=== PATIENT | female | born 1965 | race Two or more races ===

== ENCOUNTER 2018-08-28 09:29 | Inpatient (IN) | payer BC ==
[2018-08-28 11:26] LABS: BASO % 0.4 % (0-2.0); EOS % 0.2 % (0-4.5); HEMATOCRIT 28.7 % (32.4-45.2); HEMOGLOBIN 10.2 GM/dL (10.7-15.3); LYMPH % 21.8 % (8-40); MCH 32.1 pg (25.7-33.7); MCHC 35.5 g/dl (32.0-36.0); MEAN CELL VOLUME 90.4 fl (80-96); MONO % 4.4 % (3.8-10.2); NEUT % 73.2 % (42.8-82.8); PLATELET COUNT 303 K/MM3 (134-434); RBC 3.17 M/mm3 (3.60-5.2); RDW 13.7 % (11.6-15.6); WHITE BLOOD COUNT 9.9 K/mm3 (4.0-10.0)
[2018-08-28 11:53] LABS: ALBUMIN 4.1 g/dl (3.4-5.0); ALK PHOS 67 U/L (45-117); ANION GAP 6 MMOL/L (8-16); BILIRUBIN,TOTAL 0.4 mg/dL (0.2-1); BLOOD UREA NITROGEN 24 mg/dL (7-18); CALCIUM 8.3 mg/dL (8.5-10.1); CHLORIDE 106 mmol/L (98-107); CO2 26 mmol/L (21-32); CREATININE 0.6 mg/dL (0.55-1.3); GLUCOSE,RANDOM 99 mg/dL (74-106); POTASSIUM 3.8 mmol/L (3.5-5.1); SGOT/AST 19 U/L (15-37); SGPT/ALT 32 U/L (13-61); SODIUM 139 mmol/L (136-145); TOT PROT 7.2 g/dl (6.4-8.2)
[2018-08-28 12:59] LABS: URINE APPEARANCE CLEAR; URINE BILIRUBIN NEGATIVE (<2.0 mg/dL); URINE COLOR STRAW; URINE GLUCOSE (UA) NEGATIVE (NEGATIVE); URINE KETONE NEGATIVE (NEGATIVE); URINE LEUK ESTERASE NEGATIVE (NEGATIVE); URINE NITRITE NEGATIVE (NEGATIVE); URINE PROTEIN NEGATIVE (NEGATIVE); URINE UROBILINOGEN NEGATIVE mg/dL (0.2-1.0)
--- NOTE | 2018-08-28 13:11 | PDOC ---
History of Present Illness - General Chief Complaint: Pain Stated Complaint: ABDOMINAL PAIN Time Seen by Provider: 08/28/18 10:49 History Source: Patient Exam Limitations: No Limitations - History of Present Illness Travel History: No Initial Comments: 08/28/18 13:00 52 y/o female presents to the ED for evaluation of dark stool x 3 weeks associated with blood tinged stool upon defecation today. Pt states has hx of hemorrhoids and feels this am with pushing had caused it to bleed. Pt states has appt w/ Mallory next month but does not want to wait. Pt denies fever, chills, weight change, or urinary complaints. Pt states has hx of colitis, ibs, ulcers, and diverticulitis without sx intervention. Pt take NSAIDS a few times a week for LINDQUIST. Timing/Duration: reports: changing over time Quality: reports: mild, cramping Abdominal Pain Onset Location: reports: RLQ, LLQ Pain Radiation: reports: no radiation Activities at Onset: reports: none Aggravating Factors: improves with: None Alleviating Factors: improves with: None Past History - Travel Traveled outside of the country in the last 30 days: No Close contact w/someone who was outside of country & ill: No - Past Medical History Allergies/Adverse Reactions: Allergies Allergy/AdvReac Type Severity Reaction Status Date / Time No Known Allergies Allergy Verified 08/28/18 09:37 Home Medications: Ambulatory Orders Losartan Potassium 50 mg PO DAILY 08/28/18 Anemia: No Asthma: No Cancer: No Cardiac Disorders: Yes (MVP (MILD)) CVA: No COPD: No CHF: No Dementia: No Diabetes: No GI Disorders: Yes (IBS,COLON POLYPS,ULCER) Disorders: Yes (HPV) HTN: Yes Hypercholesterolemia: No Liver Disease: Yes (NAFLD) Seizures: No Thyroid Disease: No - Surgical History Abdominal Surgery: Yes (hysterectomy) Appendectomy: No Cardiac Surgery: No Cholecystectomy: Yes Lung Surgery: No Neurologic Surgery: No Orthopedic Surgery: No - Immunization History Immunization Up to Date: Yes - Suicide/Smoking/Psychosocial Hx Smoking History: Never smoked Have you smoked in the past 12 months: No Information on smoking cessation initiated: No Hx Alcohol Use: No Drug/Substance Use Hx: No Substance Use Type: None Patient Lives Alone: No Lives with/in: spouse/SO Abd/GI Specific PMHX - Complaint Specific PMHX Colitis: Yes Diverticulitis: Yes Irritable Bowel Synd (IBS): Yes Review of Systems - Review of Systems Able to Perform ROS?: No Is the patient limited Amharic proficient: No Constitutional: No: Symptoms Reported HEENTM: No: Symptoms Reported Respiratory: No: Symptoms reported Cardiac (ROS): No: Symptoms Reported ABD/GI: Yes: Blood Streaked Bowels, Abdominal cramping. No: Nausea, Vomiting : No: Symptoms Reported Musculoskeletal: No: Symptoms Reported Integumentary: No: Symptoms Reported Neurological: No: Symptoms reported Endocrine: No: Symptoms Reported Hematologic/Lymphatic: No: Symptoms Reported *Physical Exam - Vital Signs Last Vital Signs Temp Pulse Resp BP Pulse Ox 98.2 F 108 H 18 146/81 98 08/28/18 09:35 08/28/18 11:30 08/28/18 11:30 08/28/18 11:30 08/28/18 11:30 - Physical Exam General Appearance: Yes: Nourished, Appropriately Dressed. No: Apparent Distress HEENT: negative: Pale Conjunctivae Neck: positive: Normal Thyroid, Supple Respiratory/Chest: positive: Lungs Clear, Normal Breath Sounds. negative: Respiratory Distress, Accessory Muscle Use Cardiovascular: positive: Regular Rhythm, Tachycardia. negative: Murmur Gastrointestinal/Abdominal: positive: Normal Bowel Sounds, Soft, Tenderness (llq /rlq). negative: Distended, Guarding, Rebound, Hernia, Mass Rectal Exam: positive: heme positive stool (black stool on withdrawn glove) Musculoskeletal: negative: CVA Tenderness Extremity: positive: Normal Capillary Refill. negative: Pedal Edema Integumentary: positive: Normal Color, Warm, Moist Neurologic: positive: Motor Strength 5/5 (ambulatory) Moderate Sedation - Procedure Monitoring Vital Signs: Procedure Monitoring Vital Signs Temperature 98.2 F 08/28/18 09:35 Pulse Rate 108 H 08/28/18 11:30 Respiratory Rate 18 08/28/18 11:30 Blood Pressure 146/81 08/28/18 11:30 O2 Sat by Pulse Oximetry (%) 98 08/28/18 11:30 Heart Score/ECG Review - ECG Intrepretation Rhythm: Regular Rhythm (rate 98, nsr) ED Treatment Course - LABORATORY CBC & Chemistry Diagram: 08/28/18 11:00 08/28/18 11:00 - ADDITIONAL ORDERS Additional order review: Laboratory Results 08/28/18 08/28/18 11:42 11:00 Sodium 139 Potassium 3.8 Chloride 106 Carbon Dioxide 26 Anion Gap 6 L BUN 24 H Creatinine 0.6 Creat Clearance w eGFR > 60 Random Glucose 99 Calcium 8.3 L Total Bilirubin 0.4 AST 19 ALT 32 Alkaline Phosphatase 67 Total Protein 7.2 Albumin 4.1 Stool Occult Blood Positive 08/28/18 11:00 RBC 3.17 L MCV 90.4 MCHC 35.5 RDW 13.7 MPV 7.0 L Neutrophils % 73.2 D Lymphocytes % 21.8 D Monocytes % 4.4 Eosinophils % 0.2 D Basophils % 0.4 - RADIOLOGY Radiology Studies Ordered: Category Date Time Status ABDOMEN & PELVIS CT WITH CONTR [CT] Stat CT Scan 08/28/18 12:29 Ordered Medical Decision Making - Medical Decision Making 08/28/18 12:18 CC: abd pain with dark stool x 3 weeks, blood tinged stool w/ defecation this am. Has appt betsy/ mallory next month. Hx ibs, ulcers, colitis Exam: tachy, lower abd tenderness, black stool on withdrawn glove Plan: labs, stool for occult blood, abd ct 08/28/18 13:22 Laboratory Tests 08/28/18 08/28/18 08/28/18 11:00 11:00 11:42 WBC 9.9 Hgb 10.2 L Hct 28.7 L D MPV 7.0 L Neutrophils % 73.2 D Sodium 139 Potassium 3.8 Chloride 106 Carbon Dioxide 26 Anion Gap 6 L BUN 24 H Creatinine 0.6 Random Glucose 99 Calcium 8.3 L Total Bilirubin 0.4 AST 19 ALT 32 Alkaline Phosphatase 67 Total Protein 7.2 Albumin 4.1 Ur Specific [place] Urine Nitrite Ur Leukocyte Esterase Stool Occult Blood Positive 08/28/18 12:45 WBC Hgb Hct MPV Neutrophils % Sodium Potassium Chloride Carbon Dioxide Anion Gap BUN Creatinine Random Glucose Calcium Total Bilirubin AST ALT Alkaline Phosphatase Total Protein Albumin Ur Specific [place] 1.009 L Urine Nitrite Negative Ur Leukocyte Esterase Negative Stool Occult Blood 08/28/18 13:22 Laboratory Tests 07/25/18 09:06 Hgb 13.3 08/28/18 14:[address] shows sea nonobstructing nephlolithiasis. Otherwise no acute pathology. Call placed to Dr. Tejada. 08/28/18 15:[address] Worley and states please patient a protonic drip, keep nothing by mouth and admit to be scoped tomorrow. 08/28/18 17:01 hr 96 *DC/Admit/Observation/Transfer Diagnosis at time of Disposition: Abdominal pain, Hemoglobin decreased, Guaiac positive stools - Discharge Dispostion Decision to Admit order: Yes - Referrals - Patient Instructions - Post Discharge Activity
[2018-08-28] MEDS ORDERED: PANTOPRAZOLE SODIUM 80 MG in SODIUM CHLORIDE 100 ML IVPB ONE (15:15)
[2018-08-28] MEDS ORDERED: PANTOPRAZOLE SODIUM 80 MG/200 ML BAG IVPB ONE (15:41)
[2018-08-28] MEDS ORDERED: PANTOPRAZOLE SODIUM 40 MG VIAL ONE (15:43)
[2018-08-28] MEDS: PANTOPRAZOLE SODIUM 80 MG in SODIUM CHLORIDE 100 ML IVPB SCH (16:16)
--- NOTE | 2018-08-28 18:06 | HP ---
CHIEF COMPLAINT: dark stools, epigastric burning and cramps for 3 days PCP: Dr. Nair HISTORY OF PRESENT ILLNESS: 52 yof with PMhx of HTN, haemorrhoids, IBS, comes with 3 days of dark stools associated with epigsatric burning and alexandra-umbilical cramps. Reports has IBS and alternates diarrhea with constipation. Has been having multiple watery stools for last 3 days. No fevers, chills, abdominal pain noted. Was recently treated for influenza A. No recent antibiotics. reports has been taking advil almost daily for migrainous headaches for last few years. last colonoscopy 4 years ago with polyps, but no prior EGD. 12 point ROS done, neg for chest pain, dizziness, palpitations, nausea, vomiting , decreased PO intake or new concerns. ER course was notable for: (1) CT A/P neg for acute process (2) GI consult Dr. Tejada called (3) Protonix drip Recent Travel: denies PAST MEDICAL HISTORY: HTN, haemorrhoids, IBS PAST SURGICAL HISTORY: Hysterectomy Social History: Smoking: Denies Alcohol: denies Drugs: Denies Works in [employer] Family History: Allergies No Known Allergies Allergy (Verified 08/28/18 09:37) HOME MEDICATIONS: Home Medications Medication Instructions Recorded Losartan Potassium 50 mg PO DAILY 08/28/18 REVIEW OF SYSTEMS CONSTITUTIONAL: Absent: fever, chills, diaphoresis, generalized weakness, malaise, loss of appetite, weight change HEENT: Absent: rhinorrhea, nasal congestion, throat pain, throat swelling, difficulty swallowing, mouth swelling, ear pain, eye pain, visual changes CARDIOVASCULAR: Absent: chest pain, syncope, palpitations, irregular heart rate, lightheadedness , peripheral edema RESPIRATORY: Absent: cough, shortness of breath, dyspnea with exertion, orthopnea, wheezing, stridor, hemoptysis GASTROINTESTINAL: Present: melena, epigastric burning, alexandra-umbilical burning Absent: abdominal pain, abdominal distension, nausea, vomiting, diarrhea, constipation, hematochezia GENITOURINARY: Absent: dysuria, frequency, urgency, hesitancy, hematuria, flank pain, genital pain MUSCULOSKELETAL: Absent: myalgia, arthralgia, joint swelling, back pain, neck pain SKIN: Absent: rash, itching, pallor HEMATOLOGIC/IMMUNOLOGIC: Absent: easy bleeding, easy bruising, lymphadenopathy, frequent infections ENDOCRINE: Absent: unexplained weight gain, unexplained weight loss, heat intolerance, cold intolerance NEUROLOGIC: Absent: headache, focal weakness or paresthesias, dizziness, unsteady gait, seizure, mental status changes, bladder or bowel incontinence PSYCHIATRIC: Absent: anxiety, depression, suicidal or homicidal ideation, hallucinations. PHYSICAL EXAMINATION Vital Signs - 24 hr 08/28/18 08/28/18 08/28/18 09:35 11:30 15:08 Temperature 98.2 F Pulse Rate 122 H Pulse Rate [ 108 H 111 H Right Radial] Respiratory 18 18 18 Rate Blood Pressure 133/83 Blood Pressure 146/81 147/84 [Right Arm] O2 Sat by Pulse 100 98 98 Oximetry (%) GENERAL: Awake, alert, and fully oriented, in no acute distress. HEAD: Normal with no signs of trauma. EYES: Pupils equal, round and reactive to light, extraocular movements intact, sclera anicteric, conjunctiva clear. No lid lag. EARS, NOSE, THROAT: Ears normal, nares patent, oropharynx clear without exudates. Moist mucous membranes. NECK: Normal range of motion, supple without lymphadenopathy, JVD, or masses. LUNGS: Breath sounds equal, clear to auscultation bilaterally. No wheezes, and no crackles. No accessory muscle use. HEART: Regular rate and rhythm, normal S1 and S2 ABDOMEN: Soft, nontender, not distended, normoactive bowel sounds, no guarding, no rebound, no masses. Reports sensitive alexandra-umbilical region but no tenderness MUSCULOSKELETAL: Normal range of motion at all joints. No bony deformities or tenderness. No CVA tenderness. UPPER EXTREMITIES: 2+ pulses, warm, well-perfused. No cyanosis. No clubbing. No peripheral edema. LOWER EXTREMITIES: 2+ pulses, warm, well-perfused. No calf tenderness. No peripheral edema. NEUROLOGICAL: Cranial nerves II-XII intact. Normal speech. Gait not observed PSYCHIATRIC: Cooperative. Good eye contact. Appropriate mood and affect. SKIN: Warm, dry, normal turgor, no rashes or lesions noted, normal capillary refill. Laboratory Results - last 24 hr 08/28/18 08/28/18 08/28/18 11:00 11:00 11:42 WBC 9.9 RBC 3.17 L Hgb 10.2 L Hct 28.7 L D MCV 90.4 MCH 32.1 MCHC 35.5 RDW 13.7 Plt Count 303 MPV 7.0 L Absolute Neuts (auto) 7.2 Neutrophils % 73.2 D Lymphocytes % 21.8 D Monocytes % 4.4 Eosinophils % 0.2 D Basophils % 0.4 Nucleated RBC % 0 Sodium 139 Potassium 3.8 Chloride 106 Carbon Dioxide 26 Anion Gap 6 L BUN 24 H Creatinine 0.6 Creat Clearance w eGFR > 60 Random Glucose 99 Calcium 8.3 L Total Bilirubin 0.4 AST 19 ALT 32 Alkaline Phosphatase 67 Total Protein 7.2 Albumin 4.1 Urine Color Urine Appearance Urine pH Ur Specific [place] Urine Protein Urine Glucose (UA) Urine Ketones Urine Blood Urine Nitrite Urine Bilirubin Urine Urobilinogen Ur Leukocyte Esterase Stool Occult Blood Positive 08/28/18 12:45 WBC RBC Hgb Hct MCV MCH MCHC RDW Plt Count MPV Absolute Neuts (auto) Neutrophils % Lymphocytes % Monocytes % Eosinophils % Basophils % Nucleated RBC % Sodium Potassium Chloride Carbon Dioxide Anion Gap BUN Creatinine Creat Clearance w eGFR Random Glucose Calcium Total Bilirubin AST ALT Alkaline Phosphatase Total Protein Albumin Urine Color Straw Urine Appearance Clear Urine pH 7.0 Ur Specific [place] 1.009 L Urine Protein Negative Urine Glucose (UA) Negative Urine Ketones Negative Urine Blood Negative Urine Nitrite Negative Urine Bilirubin Negative Urine Urobilinogen Negative Ur Leukocyte Esterase Negative Stool Occult Blood CT A/P results reviewed EKG: NSR 98, no acute ST-T changes ASSESSMENT/PLAN: 52 yof with PMHx of HTN, haemorrhoids, IBS admitted with melena, acute anemia. -Melena, r/o NSAIDs induced gastritis, vs PUD, vs AVM, vs lower GI bleed -Acute blood loss anemia -HTN -Haemorrhoids -IBS Plan: GI Dr. Tejada consulted from the ED. NPO, protonix drip, EGD in AM. patient counseled to avoid NSAIDs. Continue losartan as tolerated. Admit to med surg. Dispo planning in 24 hours if H/h stable, EGD non concerning with possible outpatient colonoscopy Plan discussed with patient in detail, all questions answered. total admit time spent 55 min. Visit type - Emergency Visit Emergency Visit: Yes Care time: The patient presented to the Emergency Department on the above date and was hospitalized for further evaluation of their emergent condition. - New Patient This patient is new to me today: Yes Date on this admission: 08/28/18 - Critical Care Critical Care patient: No
[2018-08-28] MEDS ORDERED: DEXTROSE 5%-NORMAL SALINE 1,000 ML IV SCH (18:15)
[2018-08-28] MEDS: ACETAMINOPHEN 325 MG TABLET (FP) PO PRN (21:14)
[2018-08-28] MEDS ORDERED: LOSARTAN POTASSIUM 50 MG TABLET (FP) PO ONE (21:18)
--- NOTE | 2018-08-28 21:56 | CON.GI ---
Consult Consult Specialty:: Gastroenterology Referred by:: Bonnie Slaughter NP Reason for Consultation:: Black stool - History of Present Illness Chief Complaint: black stool x 3 days History of Present Illness: 52F has been experiencing epigastric pain and GERD with increasingly frequency and intensity for the past few months. She does take NSAIDs for headache several times a week and takes daily baby aspirin. On 08/26 and 08/27 she had a black semisolid stool and again today. Her Hb is the office is 10 and was 13 just a few weeks ago. She reminds me that she had an ulcer diagnosed by Dr Alberto remotely but has never required transfusions. She had had several colonoscopies with me for polyps that include an adenoma removed in 2007. Her last colonoscopy was performed in 10/29 and revealed mild diverticulosis and led to the removal of a hyperplastic polyp. No recent weight loss. She denies hematemesis. - History Source History Provided By: Patient Limitations to Obtaining History: No Limitations - Past Medical History PODIATRIST ORTHOPEDIC: Yes: Migraine Cardio/Vascular: Yes: HTN, Other (MVP) Gastrointestinal: Yes: Diverticulosis, GI Bleed, Peptic Ulcer Disease, Other ( colon polyps removed including an adenoma in 2007) Hepatobiliary: Yes: Cholelithiasis (had lap choly), Choledocholithiasis (had ERCP & sphincterotomy), Other (NAFLD) Renal/: Yes: Renal Calculi Reproductive: Yes: Endometriosis (had TAHBSO), Fibroids Infectious Disease: Yes: Other (HPV) - Past Surgical History Past Surgical History: Yes: Cholecystectomy (lap choly), Colonoscopy, , Hysterectomy (TAHBSO for endometriosis), Upper Endoscopy Additional Surgical History: sebaceous cystectomies form the back. ERCP & sphincterotomy to remove CBD stones. eye surgeries. 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year[place] age 3 History of Recent Travel: No Home Medications - Allergies Allergies/Adverse Reactions: Allergies Allergy/AdvReac Type Severity Reaction Status Date / Time No Known Allergies Allergy Verified 08/28/18 09:37 - Home Medications Home Medications: Ambulatory Orders Losartan Potassium 50 mg PO DAILY 08/28/18 Family Disease History - Family Disease History Family Disease History: Other: Father (healthy), Mother (hyperparathyroidism, HTN,HPL) Review of Systems - Review of Systems Constitutional: reports: No Symptoms Eyes: reports: No Symptoms HENT: reports: No Symptoms Neck: reports: No Symptoms Cardiovascular: reports: No Symptoms Respiratory: reports: No Symptoms Gastrointestinal: reports: Abdominal Pain, Indigestion, Melena, Other (acid reflux) Genitourinary: reports: No Symptoms Musculoskeletal: reports: No Symptoms Neurological: reports: Headache Physical Exam-GI Vital Signs: Vital Signs Temperature 98.5 F 08/28/18 20:16 Pulse Rate 103 H 08/28/18 20:16 Respiratory Rate 18 08/28/18 20:16 Blood Pressure 156/88 08/28/18 20:16 O2 Sat by Pulse Oximetry (%) 98 08/28/18 20:16 CBC,CMP WBC 9.9 K/mm3 (4.0-10.0) 08/28/18 11:00 RBC 3.17 M/mm3 (3.60-5.2) L 08/28/18 11:00 Hgb 10.2 GM/dL (10.7-15.3) L 08/28/18 11:00 Hct 28.7 % (32.4-45.2) L D 08/28/18 11:00 MCV 90.4 fl (80-96) 08/28/18 11:00 MCH 32.1 pg (25.7-33.7) 08/28/18 11:00 MCHC 35.5 g/dl (32.0-36.0) 08/28/18 11:00 RDW 13.7 % (11.6-15.6) 08/28/18 11:00 Plt Count 303 K/MM3 (134-434) 08/28/18 11:00 MPV 7.0 fl (7.5-11.1) L 08/28/18 11:00 Absolute Neuts (auto) 7.2 K/mm3 (1.5-8.0) 08/28/18 11:00 Neutrophils % 73.2 % (42.8-82.8) D 08/28/18 11:00 Lymphocytes % 21.8 % (8-40) D 08/28/18 11:00 Monocytes % 4.4 % (3.8-10.2) 08/28/18 11:00 Eosinophils % 0.2 % (0-4.5) D 08/28/18 11:00 Basophils % 0.4 % (0-2.0) 08/28/18 11:00 Nucleated RBC % 0 % (0-0) 08/28/18 11:00 Sodium 139 mmol/L (136-145) 08/28/18 11:00 Potassium 3.8 mmol/L (3.5-5.1) 08/28/18 11:00 Chloride 106 mmol/L (98-107) 08/28/18 11:00 Carbon Dioxide 26 mmol/L (21-32) 08/28/18 11:00 Anion Gap 6 MMOL/L (8-16) L 08/28/18 11:00 BUN 24 mg/dL (7-18) H 08/28/18 11:00 Creatinine 0.6 mg/dL (0.55-1.3) 08/28/18 11:00 Creat Clearance w eGFR > 60 (>60) 08/28/18 11:00 Random Glucose 99 mg/dL (74-106) 08/28/18 11:00 Calcium 8.3 mg/dL (8.5-10.1) L 08/28/18 11:00 Total Bilirubin 0.4 mg/dL (0.2-1) 08/28/18 11:00 AST 19 U/L (15-37) 08/28/18 11:00 ALT 32 U/L (13-61) 08/28/18 11:00 Alkaline Phosphatase 67 U/L (45-117) 08/28/18 11:00 Total Protein 7.2 g/dl (6.4-8.2) 08/28/18 11:00 Albumin 4.1 g/dl (3.4-5.0) 08/28/18 11:00 Current Medications Generic Name Dose Route Start Last Admin Trade Name Freq PRN Reason Stop Dose Admin Acetaminophen 650 mg 08/28/18 18:14 08/28/18 21:14 Tylenol - PO 650 mg Q4H PRN Administration PAIN LEVEL 1-5 Pantoprazole Sodium 80 mg/ 100 mls @ 10 mls/hr 08/28/18 15:15 08/28/18 16:16 Sodium Chloride IVPB 10 mls/hr Q10H SONYA Administration 8 MG/HR Dextrose/Sodium Chloride 1,000 mls @ 100 mls/hr 08/28/18 18:15 D5-Ns - IV ASDIR SONYA Losartan Potassium 50 mg 08/29/18 10:00 Cozaar - PO DAILY SONYA Constitutional: Yes: Calm Eyes: Yes: Conjunctiva Clear HENT: Yes: Normocephalic Neck: Yes: Supple Cardiovascular: Yes: Regular Rate and Rhythm Respiratory: Yes: CTA Bilaterally Gastrointestinal Inspection: Yes: Scars (healed laparoscopic and Pfannensteil incisions) ...Auscultate: Yes: Normoactive Bowel Sounds ...Palpate: Yes: Soft, Tenderness (mild RUQ tenderness) ...Rectal Exam: Yes: Guaiac Positive (black stringly guaiac positive stool), Hemorrhoids/External, Other (fistula in ano) Neurological: Yes: Alert, Oriented Labs: CBC, BMP 08/28/18 11:00 08/28/18 11:00 Imaging - Results Cat Scan: Report Reviewed ( Show Printer-Friendly Version without images Patient Name: Lowell Yolette Strong : 1965 ID: [id number] Study Date: Aug-2018 12:59 Walterraúl Paz Name: YOLETTE TARANGO DEPARTMENT OF RADIOLOGY Phys: Bonnie Slaughter NP : 1965 Age: 52 Sex: F [facility] Acct: [id number] Loc: [address] Exam Date: 08/28/18 Status: [facility] [place] [id number] Unit Number: [id number] EXAM#: TYPE/EXAM: RESULT: [id number] CT/ABDOMEN PELVIS CT WITH CONTR INDICATION: Blood in stool. Lower abdominal pain TECHNIQUE: Helical images of the abdomen and pelvis obtained with oral and 90 cc of Omnipaque 350 IV . COMPARISON IMAGIN04/13/2008 FINDINGS: LUNG BASES:Negative. LIVER: Hepatic steatosis. GALLBLADDER: Status post cholecystectomy. BILIARY DUCTS: Negative. PANCREAS: Negative. SPLEEN: Negative. ADRENALS: Negative. KIDNEYS: Scattered small cysts noted. Nonobstructing nephrolithiasis within the lower pole of the left kidney measuring 6 mm. Nonobstructing nephrolithiasis within the lower pole of the right kidney measuring 5 mm. AORTA: Negative. LYMPH NODES: Negative. BOWEL: Normal looking appendix. No evidence to suggest bowel obstruction. The colon is decompressed. No colonic wall thickening is identified. No evidence to suggest acute diverticulitis. No diverticulosis. No free air/fluid is present. The stomach contains fluid. PELVIS: The bladder is physiologically distended. The uterus was not identified , either previously removed or atrophic. No pelvic sidewall adenopathy seen. OTHER: No aggressive bone lesions seen. IMPRESSION: Nonobstructing nephrolithiasis. Hepatic steatosis. Additional comments noted above. Reported By: Dylon Bailey MD 08/28/18 1322 Bonnie Slaughter Technologist: Don Doss Transcribed Date/Time: 08/28/181321 County Judge : Dylon Bailey Printed Date/Time: By: Signed by: Dylon Bailey Signed on: 28-Aug-2018 13:22) Problem List - Problems (1) Gastrointestinal hemorrhage Assessment/Plan: Given the epigastric pain and reflux a duodenal ulcer and GERD would head the list of possible etiologies. She could alternatively have erosive gastritis, a Dieulafoy erosion, portal gastropathy associated with KAUFMAN among other possibilities. PPI drip has been instituted. I have advised EGD and informed Yolette of the potential adverse effects associated with EGD including perforation and hemorrhage. She has granted an informed consent. The procedure will be done tomorrow. Code(s): K92.2 - GASTROINTESTINAL HEMORRHAGE, UNSPECIFIED Qualifiers: GI bleed type/associated pathology: melena Qualified Code(s): K92.1 - Melena (2) Adenomatous colon polyp Code(s): D12.6 - BENIGN NEOPLASM OF COLON, UNSPECIFIED (3) Diverticula of colon Code(s): K57.30 - DVRTCLOS OF LG INT W/O PERFORATION OR ABSCESS W/O BLEEDING (4) Fatty (change of) liver, not elsewhere classified Code(s): K76.0 - FATTY (CHANGE OF) LIVER, NOT ELSEWHERE CLASSIFIED (5) History of peptic ulcer disease Code(s): Z87.11 - PERSONAL HISTORY OF PEPTIC ULCER DISEASE (6) Hypertension Code(s): I10 - ESSENTIAL (PRIMARY) HYPERTENSION (7) Abdominal pain Code(s): R10.9 - UNSPECIFIED ABDOMINAL PAIN (8) Guaiac positive stools Code(s): R19.5 - OTHER FECAL ABNORMALITIES (9) Hemoglobin decreased Code(s): R71.0 - PRECIPITOUS DROP IN HEMATOCRIT (10) [id number] Code(s): K60.3 - ANAL FISTULA Assessment/Plan Impression: UGI bleed likely an NSAID associated ulcer or perhaps severe GERD Personal h/o adenomatous colon polyps Fistula in ano Diverticulosis NAFLD Plan: PPI drip EGD tomorrow. This will dictate further measures Fibroscan in the office
[2018-08-28] MEDS: DEXTROSE 5%-NORMAL SALINE 1,000 ML IV SCH (23:40)
[2018-08-29] MEDS: PANTOPRAZOLE SODIUM 80 MG in SODIUM CHLORIDE 100 ML IVPB SCH ×4 (06:38→21:02)
[2018-08-29 07:55] LABS: BASO % 0.3 % (0-2.0); EOS % 1.3 % (0-4.5); HEMOGLOBIN 9.1 GM/dL (10.7-15.3); LYMPH % 41.8 % (8-40); MCHC 35.1 g/dl (32.0-36.0); MEAN CELL VOLUME 91.3 fl (80-96); MEAN PLT VOLUME 6.9 fl (7.5-11.1); MONO % 7.1 % (3.8-10.2); NEUT % 49.5 % (42.8-82.8); PLATELET COUNT 254 K/MM3 (134-434); RBC 2.85 M/mm3 (3.60-5.2); RDW 13.9 % (11.6-15.6)
[2018-08-29 08:19] LABS: INR 1.04 (0.83-1.09); PROTHROMBIN TIME (PATIENT) 12.3 SEC (9.7-13.0)
[2018-08-29 08:22] LABS: AMYLASE 40 U/L (25-115); ANION GAP 7 MMOL/L (8-16); BLOOD UREA NITROGEN 19 mg/dL (7-18); CALCIUM 8.2 mg/dL (8.5-10.1); CHLORIDE 108 mmol/L (98-107); CO2 28 mmol/L (21-32); CREATININE 0.7 mg/dL (0.55-1.3); GLUCOSE,RANDOM 108 mg/dL (74-106); LIPASE 165 U/L (73-393); MAGNESIUM 2.4 mg/dL (1.8-2.4); PHOSPHOROUS 3.3 mg/dL (2.5-4.9); POTASSIUM 3.7 mmol/L (3.5-5.1); SODIUM 143 mmol/L (136-145)
[2018-08-29] MEDS: DEXTROSE 5%-NORMAL SALINE 1,000 ML IV SCH ×2 (08:32→14:05)
[2018-08-29] MEDS: LOSARTAN POTASSIUM 50 MG TABLET (FP) PO SCH ×2 (08:34→09:12)
[2018-08-29] MEDS: ACETAMINOPHEN 325 MG TABLET (FP) PO PRN ×3 (08:36→21:04)
--- NOTE | 2018-08-29 11:06 | EKG ---
Test Reason : Blood Pressure : / mmHG Vent. Rate : 098 BPM Atrial Rate : 098 BPM P-R Int : 134 ms QRS Dur : 082 ms QT Int : 374 ms P-R-T Axes : 045 020 051 degrees QTc Int : 477 ms NORMAL SINUS RHYTHM NORMAL ECG Confirmed by MEE MONTALVO MD ([id number]) on 08/29/2018 11:06:03 AM Referred By: Confirmed By:MEE MONTALVO MD
[2018-08-29] MEDS ORDERED: EPINEPHrine 1:10,000 (P-F SYR) 1 MG/10 ML DISP.SYRIN IVPUSH ONE (12:13)
[2018-08-29] MEDS ORDERED: ACETAMINOPHEN INJECTION 100 ML IVPB ONE (12:32)
[2018-08-29] MEDS ORDERED: EPINEPHrine 1:10,000 (P-F SYR) 1 MG/10 ML DISP.SYRIN ONE (12:36)
--- NOTE | 2018-08-29 13:22 | PN ---
Progress Note (short form) - Note Progress Note: GI Procedure Note: Please see EGD report. 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 Findings discussed with Dianna and her , Dr. Nair and Dr Zhao. Stat CBC pending. Will continue PPI drip. Dr Anaya will be covering this weekend. NPO overnight Problem List - Problems (1) Gastrointestinal hemorrhage Code(s): K92.2 - GASTROINTESTINAL HEMORRHAGE, UNSPECIFIED Qualifiers: GI bleed type/associated pathology: melena Qualified Code(s): K92.1 - Melena (2) Adenomatous colon polyp Code(s): D12.6 - BENIGN NEOPLASM OF COLON, UNSPECIFIED (3) Diverticula of colon Code(s): K57.30 - DVRTCLOS OF LG INT W/O PERFORATION OR ABSCESS W/O BLEEDING (4) Fatty (change of) liver, not elsewhere classified Code(s): K76.0 - FATTY (CHANGE OF) LIVER, NOT ELSEWHERE CLASSIFIED (5) History of peptic ulcer disease Code(s): Z87.11 - PERSONAL HISTORY OF PEPTIC ULCER DISEASE (6) Hypertension Code(s): I10 - ESSENTIAL (PRIMARY) HYPERTENSION (7) Abdominal pain Code(s): R10.9 - UNSPECIFIED ABDOMINAL PAIN (8) Guaiac positive stools Code(s): R19.5 - OTHER FECAL ABNORMALITIES (9) Hemoglobin decreased Code(s): R71.0 - PRECIPITOUS DROP IN HEMATOCRIT (10) [id number] Code(s): K60.3 - ANAL FISTULA
[2018-08-29 13:36] LABS: HEMATOCRIT 25.2 % (32.4-45.2); HEMOGLOBIN 8.7 GM/dL (10.7-15.3); MCH 31.7 pg (25.7-33.7); MCHC 34.7 g/dl (32.0-36.0); MEAN CELL VOLUME 91.6 fl (80-96); MEAN PLT VOLUME 7.1 fl (7.5-11.1); PLATELET COUNT 277 K/MM3 (134-434); RBC 2.75 M/mm3 (3.60-5.2); WHITE BLOOD COUNT 8.5 K/mm3 (4.0-10.0)
--- NOTE | 2018-08-29 13:45 | PN ---
Physical Exam: SUBJECTIVE: Patient seen and examined, reports dark stools overnight. abdominal discomfort overall unchanged from yesterday. No dizziness or new concerns. OBJECTIVE: Vital Signs Period Temp Pulse Resp BP Sys/Nayak Pulse Ox Last 24 Hr 98.0 F-99.6 F 80-111 16-20 98-164/50-97 95-100 GENERAL: AAOx3, lying in bed in no acute distress Skin: Pallor Neck: soft, supple, no JVD Abdomen:Soft, NT, Nd, positive bowel sounds Extremities: no edema Chest: CTAB, no rales or wheezing CVS:S1S2 regular Laboratory Results - last 24 hr 08/29/18 08/29/18 08/29/18 06:37 07:30 07:30 WBC 5.0 RBC 2.85 L Hgb 9.1 L Hct 26.0 L MCV 91.3 MCH 32.0 MCHC 35.1 RDW 13.9 Plt Count 254 MPV 6.9 L Absolute Neuts (auto) 2.5 Neutrophils % 49.5 D Lymphocytes % 41.8 H D Monocytes % 7.1 Eosinophils % 1.3 D Basophils % 0.3 Nucleated RBC % 0 PT with INR 12.30 INR 1.04 Sodium Potassium Chloride Carbon Dioxide Anion Gap BUN Creatinine Creat Clearance w eGFR POC Glucometer 114 Random Glucose Calcium Phosphorus Magnesium Total Amylase Lipase 08/29/18 07:30 WBC RBC Hgb Hct MCV MCH MCHC RDW Plt Count MPV Absolute Neuts (auto) Neutrophils % Lymphocytes % Monocytes % Eosinophils % Basophils % Nucleated RBC % PT with INR INR Sodium 143 Potassium 3.7 Chloride 108 H Carbon Dioxide 28 Anion Gap 7 L BUN 19 H Creatinine 0.7 Creat Clearance w eGFR 87.20 POC Glucometer Random Glucose 108 H Calcium 8.2 L Phosphorus 3.3 Magnesium 2.4 Total Amylase 40 Lipase 165 Active Medications Generic Name Dose Route Start Last Admin Trade Name Freq PRN Reason Stop Dose Admin Acetaminophen 650 mg 08/28/18 18:14 08/29/18 08:36 Tylenol - PO 650 mg Q4H PRN Administration PAIN LEVEL 1-5 Pantoprazole Sodium 80 mg/ 100 mls @ 10 mls/hr 08/28/18 15:15 08/29/18 11:15 Sodium Chloride IVPB Not Given Q10H SONYA 8 MG/HR Dextrose/Sodium Chloride 1,000 mls @ 125 mls/hr 08/28/18 22:16 08/29/18 08:32 D5-Ns - IV 125 mls/hr ASDIR SONYA Administration Losartan Potassium 50 mg 08/29/18 10:00 08/29/18 09:12 Cozaar - PO Not Given DAILY SONYA ASSESSMENT/PLAN: 52 yof with PMHx of HTN, haemorrhoids, IBS admitted with melena, acute anemia. -Acute upper GI bleed from Diluefoy lesion s/p hemostasis -Acute blood loss anemia -HTN -Haemorrhoids -IBS Plan: EGD results noted. NPO, protonix, monitor h/h Losartan as tolerated. Admit to med surg. Dispo pending stable h/h and clinicla progression. Plan discussed with patient and nursing in detail, all questions answered. Visit type - Emergency Visit Emergency Visit: Yes ED Registration Date: 08/28/18 Care time: The patient presented to the Emergency Department on the above date and was hospitalized for further evaluation of their emergent condition. - New Patient This patient is new to me today: No - Critical Care Critical Care patient: No - Discharge Referral Referred to [facility] Med P.C.: No
[2018-08-29] MEDS ORDERED: ONDANSETRON 4 MG/2 ML VIAL IVPUSH PRN (14:34)
--- NOTE | 2018-08-29 14:36 | PN ---
Progress Note (short form) - Note Progress Note: GI NOte: Post EGD pain has subsided but has nausea. Will start Ondansetron. Repeat Hb 8.7. Repeat CBC ordered for 6PM. Dr Anaya will be covering this weekend. Problem List - Problems (1) Gastrointestinal hemorrhage Code(s): K92.2 - GASTROINTESTINAL HEMORRHAGE, UNSPECIFIED Qualifiers: GI bleed type/associated pathology: melena Qualified Code(s): K92.1 - Melena (2) Adenomatous colon polyp Code(s): D12.6 - BENIGN NEOPLASM OF COLON, UNSPECIFIED (3) Diverticula of colon Code(s): K57.30 - DVRTCLOS OF LG INT W/O PERFORATION OR ABSCESS W/O BLEEDING (4) Fatty (change of) liver, not elsewhere classified Code(s): K76.0 - FATTY (CHANGE OF) LIVER, NOT ELSEWHERE CLASSIFIED (5) History of peptic ulcer disease Code(s): Z87.11 - PERSONAL HISTORY OF PEPTIC ULCER DISEASE (6) Hypertension Code(s): I10 - ESSENTIAL (PRIMARY) HYPERTENSION (7) Abdominal pain Code(s): R10.9 - UNSPECIFIED ABDOMINAL PAIN (8) Guaiac positive stools Code(s): R19.5 - OTHER FECAL ABNORMALITIES (9) Hemoglobin decreased Code(s): R71.0 - PRECIPITOUS DROP IN HEMATOCRIT (10) [id number] Code(s): K60.3 - ANAL FISTULA
[2018-08-29] MEDS: MAG HYDROX/AL HYDROX/SIMETH 30 ML UNIT-DOSE CUP PO SCH (14:48)
[2018-08-29] MEDS ORDERED: PT OWN MED DRAWER 7, Y5N ONE (21:04)
[2018-08-29 22:06] LABS: HEMATOCRIT 21.9 % (32.4-45.2); HEMOGLOBIN 7.6 GM/dL (10.7-15.3); MCH 31.5 pg (25.7-33.7); MCHC 34.5 g/dl (32.0-36.0); MEAN CELL VOLUME 91.3 fl (80-96); PLATELET COUNT 230 K/MM3 (134-434); RDW 13.7 % (11.6-15.6); WHITE BLOOD COUNT 6.2 K/mm3 (4.0-10.0)
[2018-08-30] MEDS: MAG HYDROX/AL HYDROX/SIMETH 30 ML UNIT-DOSE CUP PO SCH ×5 (01:47→23:35)
[2018-08-30] MEDS ORDERED: PT OWN MED DRAWER 7, Y5N ONE (06:44)
[2018-08-30] MEDS: DEXTROSE 5%-NORMAL SALINE 1,000 ML IV SCH ×2 (06:47→08:34)
[2018-08-30] MEDS: PANTOPRAZOLE SODIUM 80 MG in SODIUM CHLORIDE 100 ML IVPB SCH ×2 (06:47→18:18)
[2018-08-30 08:04] LABS: BASO % 0.4 % (0-2.0); EOS % 4.2 % (0-4.5); HEMATOCRIT 21.4 % (32.4-45.2); HEMOGLOBIN 7.6 GM/dL (10.7-15.3); LYMPH % 36.5 % (8-40); MCH 32.3 pg (25.7-33.7); MCHC 35.5 g/dl (32.0-36.0); MEAN CELL VOLUME 90.9 fl (80-96); MEAN PLT VOLUME 7.3 fl (7.5-11.1); MONO % 8.4 % (3.8-10.2); NEUT % 50.5 % (42.8-82.8); PLATELET COUNT 222 K/MM3 (134-434); RBC 2.35 M/mm3 (3.60-5.2); RDW 13.7 % (11.6-15.6); WHITE BLOOD COUNT 4.7 K/mm3 (4.0-10.0)
[2018-08-30 08:06] LABS: ANION GAP 3 MMOL/L (8-16); BLOOD UREA NITROGEN 10 mg/dL (7-18); CALCIUM 7.5 mg/dL (8.5-10.1); CHLORIDE 110 mmol/L (98-107); CO2 28 mmol/L (21-32); CREATININE 0.6 mg/dL (0.55-1.3); GLUCOSE,RANDOM 111 mg/dL (74-106); POTASSIUM 3.5 mmol/L (3.5-5.1); SODIUM 141 mmol/L (136-145)
[2018-08-30 08:12] LABS: INR 1.06 (0.83-1.09); PROTHROMBIN TIME (PATIENT) 12.5 SEC (9.7-13.0)
[2018-08-30] MEDS: ACETAMINOPHEN 325 MG TABLET (FP) PO PRN ×2 (08:44→12:56)
[2018-08-30] MEDS: LOSARTAN POTASSIUM 50 MG TABLET (FP) PO SCH (10:19)
--- NOTE | 2018-08-30 10:35 | PN ---
GI Progress Note Subjective: Small dark BM overnight No abdominal pain Complains of headache - Objective Vital Signs: Vital Signs Temperature 97.9 F 08/30/18 06:00 Pulse Rate 88 08/30/18 06:00 Respiratory Rate 20 08/30/18 06:00 Blood Pressure 144/76 08/30/18 06:00 O2 Sat by Pulse Oximetry (%) 97 08/29/18 13:30 Constitutional: Calm Eyes: No: Sclera Icterus Cardiovascular: Yes: Regular Rate and Rhythm Respiratory: Yes: CTA Bilaterally Gastrointestinal Inspection: No: Distention ...Auscultate: Yes: Normoactive Bowel Sounds ...Palpate: No: Hepatomegaly, Splenomegaly, Tenderness Edema: No (No LE edema) Neurological: Yes: Alert Labs: CBC, BMP 08/30/18 06:00 08/30/18 06:00 INR, PTT INR 1.06 (0.83-1.09) 08/30/18 06:00 Problem List - Problems (1) Gastric hemorrhage due to Dieulafoy lesion of stomach Assessment/Plan: H/H stable from overnight and remains hemodynamically stable. Receiving 1 U PRBC today with repeat CBC for 3pm Continue PPI drip If no overt bleeding and appropriate response to PRBC transfusion, advance to clears Code(s): K31.82 - DIEULAFOY LESION (HEMORRHAGIC) OF STOMACH AND DUODENUM
[2018-08-30] MEDS ORDERED: ACETAMINOPHEN/CAFFEINE/BUTALBITAL 1 TAB PO ONE (15:02)
--- NOTE | 2018-08-30 15:45 | CONSULT ---
Consult Consult Specialty:: General Surgery Reason for Consultation:: GIB - History of Present Illness Chief Complaint: Dark stools. History of Present Illness: 52 yo female PMH HTN, PUD, hemorrhoids, IBS, comes with 3 days of dark stools associated with epigsatric burning and alexandra-umbilical cramps. she had ulcer treated with antacid therapy in her 20's. Has been suffering in recent 3 months with worses than average " heart burn" especially exacerbated with marinara and pasta dishes (specified ravioli). Also reports has IBS and alternates diarrhea with constipation. Has been having multiple watery stools for last 3 days. No fevers, chills, abdominal pain noted. Yesterday she had an upper GIB (deulefoy adjacent to pylorus) on theraputic EGD. We were asked to assess. - History Source History Provided By: Patient, Significant Other Limitations to Obtaining History: No Limitations - Past Medical History [employer]: Yes: Migraine Cardio/Vascular: Yes: HTN, Other (MVP) Gastrointestinal: Yes: Diverticulosis, GI Bleed, Peptic Ulcer Disease, Other ( colon polyps removed including an adenoma in 2007) Hepatobiliary: Yes: Cholelithiasis (had lap choly), Choledocholithiasis (had ERCP & sphincterotomy), Other (NAFLD) Renal/: Yes: Renal Calculi Infectious Disease: Yes: Other (HPV) - Past Surgical History Past Surgical History: Yes: Cholecystectomy (lap choly), Colonoscopy, , Hysterectomy (TAHBSO for endometriosis), Upper Endoscopy Additional Surgical History: sebaceous cystectomies form the back. ERCP & sphincterotomy to remove CBD stones. eye surgeries. 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 History of Recent Travel: No Home Medications - Allergies Allergies/Adverse Reactions: Allergies Allergy/AdvReac Type Severity Reaction Status Date / Time No Known Allergies Allergy Verified 08/28/18 09:37 - Home Medications Home Medications: Ambulatory Orders Losartan Potassium 50 mg PO DAILY 08/28/18 Acetaminophen [Tylenol] 1,000 mg IVPB ASDIR 08/29/18 Family Disease History - Family Disease History Family Disease History: Other: Father (healthy), Mother (hyperparathyroidism, HTN,HPL) Review of Systems - Review of Systems Constitutional: denies: Chills, Fever Eyes: denies: Blind Spots, Recent Change in Vision HENT: denies: Difficult Swallowing, Throat Pain Neck: denies: Decreased ROM, Pain on Movement Cardiovascular: denies: Chest Pain, Palpitations Respiratory: denies: Cough, SOB Gastrointestinal: denies: Abdominal Pain, Constipation, Diarrhea Breasts: reports: No Symptoms Reported. denies: Pain Musculoskeletal: denies: Back Pain, Muscle Pain Integumentary: denies: Bruising, Pallor, Pruritis Neurological: denies: Seizure, Syncope Endocrine: denies: Unexplained Weight Gain, Unexplained Weight Loss Hematology/Lymphatic: denies: Easily Bruised, Excessive Bleeding Psychiatric: denies: Anxiety, Depression Physical Exam Vital Signs: Vital Signs Temperature 98.3 F 08/30/18 14:15 Pulse Rate 80 08/30/18 14:15 Respiratory Rate 18 08/30/18 14:15 Blood Pressure 117/56 L 08/30/18 14:15 O2 Sat by Pulse Oximetry (%) 97 08/29/18 13:30 Vital Signs Period Temp Pulse Resp BP Sys/Nayak Pulse Ox Last 24 Hr 97.9 F-99 F 76-88 18-20 111-144/51-78 Constitutional: Yes: Well Nourished, No Distress, Calm, Obese Eyes: Yes: Conjunctiva Clear, EOM Intact HENT: Yes: Atraumatic, Normocephalic Neck: Yes: Supple, Trachea Midline Cardiovascular: Yes: Regular Rate and Rhythm, S1, S2 Respiratory: Yes: Regular, CTA Bilaterally Gastrointestinal: Yes: Normal Bowel Sounds, Soft, Abdomen, Obese. No: Tenderness, Tenderness, Epigastrium, Tenderness, Rebound ...Rectal Exam: Yes: Hemorrhoids/External, Sphincter Tone Normal. No: Mass Renal/: No: CVA Tenderness - Left, CVA Tenderness - Right Breast(s): No: Gynecomastia, Nipple Inversion Musculoskeletal: No: Muscle Pain, Muscle Weakness Extremities: No: Cool, Cyanosis Edema: No Peripheral Pulses WNL: Yes Integumentary: No: Jaundice, Rash Neurological: Yes: Alert, Oriented Psychiatric: Yes: Alert, Oriented Labs: CBC, BMP 08/30/18 06:00 08/30/18 06:00 Imaging - Results Other: Report Reviewed, Image Reviewed (upper endoscopy as detailed in HPI) Problem List - Problems (1) Gastrointestinal hemorrhage Assessment/Plan: 52yo male MMP with UGIB, Deulefoy on EGD that has apparently been controlled by clips, history of PUD (2nd decade), long standing heart burn prior to this admission. hemodynamically stable but anemic and being transfused 1 unit RBC currently. No indication for acute surgical intervention. Consider monitored setting if bleeding is thought to be persistent Diet as torated IVF hydration Transfuse as indicated PPI Drip? PPI regimen for home R/O H. Pylori and have eradication therapy if indicated Will follow per Thank you for the opportunity to participate in the care of this patient. Code(s): K92.2 - GASTROINTESTINAL HEMORRHAGE, UNSPECIFIED Qualifiers: GI bleed type/associated pathology: melena Qualified Code(s): K92.1 - Melena (2) Adenomatous colon polyp Code(s): D12.6 - BENIGN NEOPLASM OF COLON, UNSPECIFIED (3) Dieulafoy lesion of stomach Code(s): K31.82 - DIEULAFOY LESION (HEMORRHAGIC) OF STOMACH AND DUODENUM (4) Diverticula of colon Code(s): K57.30 - DVRTCLOS OF LG INT W/O PERFORATION OR ABSCESS W/O BLEEDING (5) Fatty (change of) liver, not elsewhere classified Code(s): K76.0 - FATTY (CHANGE OF) LIVER, NOT ELSEWHERE CLASSIFIED (6) Hypertension Code(s): I10 - ESSENTIAL (PRIMARY) HYPERTENSION
--- NOTE | 2018-08-30 16:00 | PN ---
Physical Exam: SUBJECTIVE: Patient seen and examined, dark stools this AM. reports migrainous headache. Abdominal discomfort improved. OBJECTIVE: Vital Signs Period Temp Pulse Resp BP Sys/Nayak Pulse Ox Last 24 Hr 97.9 F-99 F 76-88 18-20 111-144/51-78 Intake & Output 08/27/18 08/28/18 08/29/18 08/30/18 23:59 23:59 23:59 23:59 Intake Total 2425 Balance 2425 Weight 5 lb 1 oz 172 lb GENERAL: AAOx3, lying in bed in no acute distress Skin: Pallor Neck: soft, supple, no JVD Abdomen:Soft, NT, Nd, positive bowel sounds Extremities: no edema Chest: CTAB, no rales or wheezing CVS:S1S2 regular Laboratory Results - last 24 hr 08/29/18 08/29/18 08/29/18 12:30 17:18 21:50 WBC 6.2 RBC 2.40 L Hgb 7.6 L Hct 21.9 L MCV 91.3 MCH 31.5 MCHC 34.5 RDW 13.7 Plt Count 230 MPV 7.0 L Absolute Neuts (auto) Neutrophils % Lymphocytes % Monocytes % Eosinophils % Basophils % Nucleated RBC % PT with INR INR Sodium Potassium Chloride Carbon Dioxide Anion Gap BUN Creatinine Creat Clearance w eGFR POC Glucometer 85 Random Glucose Calcium Blood Type A NEGATIVE Antibody Screen Negative Crossmatch See Detail 08/30/18 08/30/18 08/30/18 06:00 06:00 06:00 WBC 4.7 RBC 2.35 L Hgb 7.6 L Hct 21.4 L MCV 90.9 MCH 32.3 MCHC 35.5 RDW 13.7 Plt Count 222 MPV 7.3 L Absolute Neuts (auto) 2.4 Neutrophils % 50.5 Lymphocytes % 36.5 Monocytes % 8.4 Eosinophils % 4.2 D Basophils % 0.4 Nucleated RBC % 0 PT with INR 12.50 INR 1.06 Sodium 141 Potassium 3.5 Chloride 110 H Carbon Dioxide 28 Anion Gap 3 L BUN 10 Creatinine 0.6 Creat Clearance w eGFR 104.18 POC Glucometer Random Glucose 111 H Calcium 7.5 L Blood Type Antibody Screen Crossmatch Active Medications Generic Name Dose Route Start Last Admin Trade Name Freq PRN Reason Stop Dose Admin Acetaminophen 650 mg 08/28/18 18:14 08/30/18 12:56 Tylenol - PO 650 mg Q4H PRN Administration PAIN LEVEL 1-5 Al Hydroxide/Mg Hydroxide 30 ml 08/29/18 14:30 08/30/18 12:56 Mylanta Oral Suspension - PO 30 ml Q6HPO SONYA Administration Pantoprazole Sodium 80 mg/ 100 mls @ 10 mls/hr 08/28/18 15:15 08/30/18 06:47 Sodium Chloride IVPB 10 mls/hr Q10H SONYA Administration 8 MG/HR Dextrose/Sodium Chloride 20 meq in 1,000 mls @ 125 mls/hr 08/30/18 16:00 Dextrose 5%-Normal Saline+20 Meq Kcl - IV ASDIR SONYA Losartan Potassium 50 mg 08/29/18 10:00 08/30/18 10:19 Cozaar - PO 50 mg DAILY SONYA Administration Ondansetron HCl 4 mg 08/29/18 14:34 08/29/18 14:52 Zofran Injection IVPUSH 4 mg Q6H PRN Administration NAUSEA ASSESSMENT/PLAN: 52 yof with PMHx of HTN, haemorrhoids, IBS admitted with melena, acute anemia. -Acute upper GI bleed from Diluefoy lesion s/p hemostasis -Acute blood loss anemia -Migrainous headaches -HTN -Haemorrhoids -IBS Plan: Transfuse 1 unit PRBC Repeat CBC post transfusion. GI input noted. If CBC improved, start clears. Protonix drip. Await surgery input. Fioricet x 1. Losartan as tolerated. Dispo pending clinical improvement. Plan discussed with patient and nursing in detail, all questions answered. Visit type - Emergency Visit Emergency Visit: Yes ED Registration Date: 08/28/18 Care time: The patient presented to the Emergency Department on the above date and was hospitalized for further evaluation of their emergent condition. - New Patient This patient is new to me today: No - Critical Care Critical Care patient: No - Discharge Referral Referred to [facility] Med P.C.: No
[2018-08-30] MEDS: D5-NS + 20 MEQ KCL - 20 MEQ/1,000 ML INFUS.BAG IV SCH (18:17)
[2018-08-30 19:43] LABS: HEMATOCRIT 26.5 % (32.4-45.2); HEMOGLOBIN 9.5 GM/dL (10.7-15.3); MCH 32.1 pg (25.7-33.7); MCHC 35.8 g/dl (32.0-36.0); MEAN CELL VOLUME 89.8 fl (80-96); PLATELET COUNT 248 K/MM3 (134-434); RBC 2.95 M/mm3 (3.60-5.2); WHITE BLOOD COUNT 6.6 K/mm3 (4.0-10.0)
[2018-08-31] MEDS: PANTOPRAZOLE SODIUM 80 MG in SODIUM CHLORIDE 100 ML IVPB SCH ×5 (01:30→22:43)
[2018-08-31] MEDS: D5-NS + 20 MEQ KCL - 20 MEQ/1,000 ML INFUS.BAG IV SCH ×4 (03:30→21:45)
[2018-08-31] MEDS: MAG HYDROX/AL HYDROX/SIMETH 30 ML UNIT-DOSE CUP PO SCH ×3 (05:34→17:11)
[2018-08-31] MEDS: ACETAMINOPHEN 325 MG TABLET (FP) PO PRN ×3 (06:46→17:11)
[2018-08-31 07:35] LABS: HEMATOCRIT 24.3 % (32.4-45.2); HEMOGLOBIN 8.8 GM/dL (10.7-15.3); MCH 32.4 pg (25.7-33.7); MCHC 36.2 g/dl (32.0-36.0); MEAN CELL VOLUME 89.5 fl (80-96); MEAN PLT VOLUME 7.3 fl (7.5-11.1); PLATELET COUNT 236 K/MM3 (134-434); RBC 2.71 M/mm3 (3.60-5.2); RDW 14.6 % (11.6-15.6); WHITE BLOOD COUNT 5.8 K/mm3 (4.0-10.0)
[2018-08-31] MEDS: LOSARTAN POTASSIUM 50 MG TABLET (FP) PO SCH (10:16)
--- NOTE | 2018-08-31 12:22 | PN ---
Physical Exam: SUBJECTIVE: Patient seen and examined, yellow BM today. No dizziness. Tolerating PO, no nausea/vomiting. OBJECTIVE: Vital Signs Period Temp Pulse Resp BP Sys/Nayak Pulse Ox Last 24 Hr 98.1 F-98.3 F 80-83 116-136/56-86 96 Intake & Output 08/28/18 08/29/18 08/30/18 08/31/18 23:59 23:59 23:59 23:59 Intake Total 2425 1800 Balance 2425 1800 Weight 5 lb 1 oz 172 lb GENERAL: AAOx3, lying in bed in no acute distress HEENT:EOMI Skin: Pallor Neck: soft, supple, no JVD Abdomen:Soft, NT, Nd, positive bowel sounds Extremities: no edema Chest: CTAB, no rales or wheezing CVS:S1S2 regular Laboratory Results - last 24 hr 08/29/18 08/30/18 08/31/18 12:30 19:08 06:00 WBC 6.6 5.8 RBC 2.95 L 2.71 L Hgb 9.5 L 8.8 L Hct 26.5 L D 24.3 L MCV 89.8 89.5 MCH 32.1 32.4 MCHC 35.8 36.2 H RDW 14.0 14.6 Plt Count 248 236 MPV 7.0 L 7.3 L Potassium POC Glucometer Blood Type A NEGATIVE Antibody Screen Negative Crossmatch See Detail 08/31/18 08/31/18 06:00 11:53 WBC RBC Hgb Hct MCV MCH MCHC RDW Plt Count MPV Potassium 3.6 POC Glucometer 89 Blood Type Antibody Screen Crossmatch Active Medications Generic Name Dose Route Start Last Admin Trade Name Freq PRN Reason Stop Dose Admin Acetaminophen 650 mg 08/28/18 18:14 08/31/18 11:05 Tylenol - PO 650 mg Q4H PRN Administration PAIN LEVEL 1-5 Al Hydroxide/Mg Hydroxide 30 ml 08/29/18 14:30 08/31/18 11:05 Mylanta Oral Suspension - PO 30 ml Q6HPO SONYA Administration Pantoprazole Sodium 80 mg/ 100 mls @ 10 mls/hr 08/28/18 15:15 08/31/18 11:50 Sodium Chloride IVPB 10 mls/hr Q10H SONYA Administration 8 MG/HR Dextrose/Sodium Chloride 20 meq in 1,000 mls @ 125 mls/hr 08/30/18 16:00 11:50 Dextrose 5%-Normal Saline+20 Meq Kcl - IV 125 mls/hr ASDIR SONYA Administration Losartan Potassium 50 mg 08/29/18 10:00 08/31/18 10:16 Cozaar - PO 50 mg DAILY SONYA Administration Ondansetron HCl 4 mg 08/29/18 14:34 08/29/18 14:52 Zofran Injection IVPUSH 4 mg Q6H PRN Administration NAUSEA ASSESSMENT/PLAN: 52 yof with PMHx of HTN, haemorrhoids, IBS admitted with melena, acute anemia. -Acute upper GI bleed from Diluefoy lesion s/p hemostasis -Acute blood loss anemia -Migrainous headaches -Hypokalemia -HTN -Haemorrhoids -IBS Plan: s/p 1 unit PRBC. Hb slightly drifted down this AM. Suspect is equilibrating. No further bleed concerns. Repeat H/h this afternoon. Advance PO as tolerated if h/h stable and no concerns. Surgery input noted. Protonix drip per GI. Replete K prn. Losartan as tolerated. Dispo in 24 hours if h/h stable, tolerating diet and cleared by GI. Plan discussed with patient and nursing in detail, all questions answered. Visit type - Emergency Visit Emergency Visit: Yes ED Registration Date: 08/28/18 Care time: The patient presented to the Emergency Department on the above date and was hospitalized for further evaluation of their emergent condition. - New Patient This patient is new to me today: No - Critical Care Critical Care patient: No - Discharge Referral Referred to [facility] Med P.C.: No
--- NOTE | 2018-08-31 13:39 | PN ---
GI Progress Note Subjective: No acute events Some upper abdominal pian when she is sitting up Yellow BM today - Objective Vital Signs: Vital Signs Temperature 98.1 F 08/31/18 10:00 Pulse Rate 83 08/31/18 10:00 Respiratory Rate 08/31/18 10:00 Blood Pressure 136/86 08/31/18 10:00 O2 Sat by Pulse Oximetry (%) 96 08/31/18 09:00 Constitutional: Calm Eyes: No: Sclera Icterus Cardiovascular: Yes: Tachycardia Respiratory: Yes: CTA Bilaterally Gastrointestinal Inspection: No: Distention ...Auscultate: Yes: Normoactive Bowel Sounds ...Palpate: No: Hepatomegaly, Splenomegaly, Tenderness ...Percussion: No: Tympanitic Edema: No (No LE edema) Neurological: Yes: Alert Labs: CBC, BMP 08/31/18 06:00 08/31/18 06:00 INR, PTT INR 1.06 (0.83-1.09) 08/30/18 06:00 Laboratory Tests 08/30/18 08/30/18 08/31/18 06:00 19:08 06:00 Hgb 7.6 L 9.5 L 8.8 L Problem List - Problems (1) Gastric hemorrhage due to Dieulafoy lesion of stomach Assessment/Plan: No overt bleeding reported and had a yellow BM today Continue PPI drip Advance to full liquid Monitor H/H / Vitals. if continued decline in Hgb, may make NPO after midnight except meds for possible 2nd look EGD tomorrow Code(s): K31.82 - DIEULAFOY LESION (HEMORRHAGIC) OF STOMACH AND DUODENUM
[2018-08-31 14:17] LABS: HEMOGLOBIN 8.5 GM/dL (10.7-15.3); MCH 31.6 pg (25.7-33.7); MCHC 35.2 g/dl (32.0-36.0); MEAN CELL VOLUME 89.6 fl (80-96); PLATELET COUNT 248 K/MM3 (134-434); RBC 2.68 M/mm3 (3.60-5.2); RDW 14.7 % (11.6-15.6); WHITE BLOOD COUNT 5.6 K/mm3 (4.0-10.0)
[2018-08-31 16:16] LABS: HEMATOCRIT 24.5 % (32.4-45.2); HEMOGLOBIN 8.9 GM/dL (10.7-15.3); MCH 32.7 pg (25.7-33.7); MCHC 36.3 g/dl (32.0-36.0); MEAN CELL VOLUME 89.9 fl (80-96); MEAN PLT VOLUME 7.2 fl (7.5-11.1); PLATELET COUNT 254 K/MM3 (134-434); RBC 2.72 M/mm3 (3.60-5.2); RDW 14.8 % (11.6-15.6); WHITE BLOOD COUNT 6.2 K/mm3 (4.0-10.0)
[2018-09-01] MEDS: MAG HYDROX/AL HYDROX/SIMETH 30 ML UNIT-DOSE CUP PO SCH ×4 (00:25→17:46)
[2018-09-01 07:25] LABS: HEMATOCRIT 23.7 % (32.4-45.2); HEMOGLOBIN 8.5 GM/dL (10.7-15.3); MCH 32.1 pg (25.7-33.7); MCHC 35.9 g/dl (32.0-36.0); MEAN CELL VOLUME 89.5 fl (80-96); PLATELET COUNT 235 K/MM3 (134-434); RBC 2.64 M/mm3 (3.60-5.2); RDW 14.5 % (11.6-15.6); WHITE BLOOD COUNT 4.6 K/mm3 (4.0-10.0)
[2018-09-01] MEDS ORDERED: PT OWN MED DRAWER 7, Y5N ONE (09:17)
[2018-09-01] MEDS: LOSARTAN POTASSIUM 50 MG TABLET (FP) PO SCH (09:22)
[2018-09-01] MEDS: PANTOPRAZOLE SODIUM 80 MG in SODIUM CHLORIDE 100 ML IVPB SCH (09:22)
[2018-09-01] MEDS: D5-NS + 20 MEQ KCL - 20 MEQ/1,000 ML INFUS.BAG IV SCH (09:22)
--- NOTE | 2018-09-01 10:15 | PN ---
GI Progress Note Subjective: GI NOte: Dr Anaya's coverage is appreciated. Still has a dull right epigastric pain. Having green jello colored BMs. NO further melena. - Objective Vital Signs: Vital Signs Temperature 98.1 F 09/01/18 06:00 Pulse Rate 67 09/01/18 06:00 Respiratory Rate 20 09/01/18 06:00 Blood Pressure 135/73 09/01/18 06:00 O2 Sat by Pulse Oximetry (%) 96 08/31/18 21:00 Laboratory Tests 08/30/18 08/30/18 08/30/18 06:00 06:00 19:08 Hgb 7.6 L 9.5 L BUN 10 Creatinine 0.6 08/31/18 08/31/18 08/31/18 06:00 13:15 15:21 Hgb 8.8 L 8.5 L 8.9 L BUN Creatinine 09/01/18 05:30 Hgb 8.5 L BUN Creatinine Labs: CBC, BMP 09/01/18 05:30 08/31/18 06:00 INR, PTT INR 1.06 (0.83-1.09) 08/30/18 06:00 Problem List - Problems (1) Gastrointestinal hemorrhage Assessment/Plan: Dieulafoy erosion bleed resolved. Code(s): K92.2 - GASTROINTESTINAL HEMORRHAGE, UNSPECIFIED Qualifiers: GI bleed type/associated pathology: melena Qualified Code(s): K92.1 - Melena (2) Dieulafoy lesion of stomach Assessment/Plan: NSAID related and resolving Code(s): K31.82 - DIEULAFOY LESION (HEMORRHAGIC) OF STOMACH AND DUODENUM (3) Adenomatous colon polyp Code(s): D12.6 - BENIGN NEOPLASM OF COLON, UNSPECIFIED (4) Diverticula of colon Code(s): K57.30 - DVRTCLOS OF LG INT W/O PERFORATION OR ABSCESS W/O BLEEDING (5) Fatty (change of) liver, not elsewhere classified Code(s): K76.0 - FATTY (CHANGE OF) LIVER, NOT ELSEWHERE CLASSIFIED (6) History of peptic ulcer disease Code(s): Z87.11 - PERSONAL HISTORY OF PEPTIC ULCER DISEASE (7) Hypertension Code(s): I10 - ESSENTIAL (PRIMARY) HYPERTENSION (8) Abdominal pain Code(s): R10.9 - UNSPECIFIED ABDOMINAL PAIN (9) Guaiac positive stools Code(s): R19.5 - OTHER FECAL ABNORMALITIES (10) Hemoglobin decreased Code(s): R71.0 - PRECIPITOUS DROP IN HEMATOCRIT (11) [id number] Code(s): K60.3 - ANAL FISTULA
--- NOTE | 2018-09-01 11:16 | PN ---
Teaching Attending Note Name of Resident: Leanna Arnold ATTENDING PHYSICIAN STATEMENT I saw and evaluated the patient. I reviewed the resident's note and discussed the case with the resident. I agree with the resident's findings and plan as documented with exceptions below. SUBJECTIVE: patient seen and examined. No further dark stools. Epigastric discomfort but improved. OBJECTIVE: Vital Signs Period Temp Pulse Resp BP Sys/Nayak Pulse Ox Last 24 Hr 98.1 F-98.2 F 67-67 20-20 116-135/70-73 96 Intake & Output 08/29/18 08/30/18 08/31/18 09/01/18 23:59 23:59 23:59 23:59 Intake Total 2425 3660 1200 Balance 2425 3660 1200 Weight 172 lb General: ambulating in hallway, no acute distress Chest: CTAB, no rales or wheezing Abdomen:Soft, obese, NT Extremities: no edema CVS:S1S2 regular Home Medications Medication Instructions Recorded Losartan Potassium 50 mg PO DAILY 08/28/18 Acetaminophen [Tylenol] 1,000 mg IVPB ASDIR 08/29/18 Active Medications Acetaminophen (Tylenol -) 650 mg PO Q4H PRN PRN Reason: PAIN LEVEL 1-5 Last Admin: 08/31/18 17:11 Dose: 650 mg Al Hydroxide/Mg Hydroxide (Mylanta Oral Suspension -) 30 ml PO Q6HPO [facility] Last Admin: 09/01/18 05:46 Dose: Not Given Iron Sucrose 200 mg/ Sodium (Chloride) 100 mls @ 200 mls/hr IVPB ONCE ONE Stop: 09/01/18 12:29 Losartan Potassium (Cozaar -) 50 mg PO DAILY [facility] Last Admin: 09/01/18 09:22 Dose: 50 mg Ondansetron HCl (Zofran Injection) 4 mg IVPUSH Q6H PRN PRN Reason: NAUSEA Last Admin: 08/29/18 14:52 Dose: 4 mg Pantoprazole Sodium (Protonix -) 40 mg PO BID [facility] Laboratory Results - last 24 hr 08/31/18 08/31/18 08/31/18 11:53 13:15 15:21 WBC 5.6 6.2 RBC 2.68 L 2.72 L Hgb 8.5 L 8.9 L Hct 24.0 L 24.5 L MCV 89.6 89.9 MCH 31.6 32.7 MCHC 35.2 36.3 H RDW 14.7 14.8 Plt Count 248 254 MPV 8.0 7.2 L POC Glucometer 89 08/31/18 09/01/18 17:18 05:30 WBC 4.6 RBC 2.64 L Hgb 8.5 L Hct 23.7 L MCV 89.5 MCH 32.1 MCHC 35.9 RDW 14.5 Plt Count 235 MPV 7.0 L POC Glucometer 85 ASSESSMENT AND PLAN: 52 yof with PMHx of HTN, haemorrhoids, IBS admitted with melena, acute anemia. -Acute upper GI bleed from Diluefoy lesion s/p hemostasis -Acute blood loss anemia -Migrainous headaches -Hypokalemia -HTN -Haemorrhoids -IBS Plan: H/h overall stable No further evidence of bleed Discussed with Dr. Tejada, Advance to soft diet. D/c home in 24 hours if h/h stable and no new concerns. Continue losartan, protonix BID Dispo d/c home in 24 hours if no concerns. Plan discussed with patient, nursing and Dr. Tejada.
[2018-09-01 11:52] LABS: HEMATOCRIT 27.1 % (32.4-45.2); HEMOGLOBIN 9.7 GM/dL (10.7-15.3); MCH 32.2 pg (25.7-33.7); MCHC 35.8 g/dl (32.0-36.0); MEAN CELL VOLUME 89.9 fl (80-96); MEAN PLT VOLUME 6.9 fl (7.5-11.1); PLATELET COUNT 292 K/MM3 (134-434); RBC 3.01 M/mm3 (3.60-5.2); RDW 14.4 % (11.6-15.6); WHITE BLOOD COUNT 5.8 K/mm3 (4.0-10.0)
[2018-09-01] MEDS ORDERED: IRON SUCROSE INJECTION 200 MG in SODIUM CHLORIDE 90 ML IVPB ONE (12:00)
[2018-09-01] MEDS: ACETAMINOPHEN 325 MG TABLET (FP) PO PRN (16:37)
--- NOTE | 2018-09-01 18:45 | PN ---
Physical Exam: SUBJECTIVE: Patient seen and examined no new complaints , h/h stable OBJECTIVE: Vital Signs Period Temp Pulse Resp BP Sys/Nayak Pulse Ox Last 24 Hr 98.1 F-98.4 F 67-77 17-20 106-139/66-85 96-98 GENERAL: The patient is awake, alert, and fully oriented, in no acute distress. LUNGS: Breath sounds equal, clear to auscultation bilaterally, no wheezes, no crackles, no accessory muscle use. HEART: Regular rate and rhythm, S1, S2 without murmur, rub or gallop. ABDOMEN: Soft, nontender, nondistended, normoactive bowel sounds, no guarding, no rebound, no hepatosplenomegaly, no masses. EXTREMITIES: 2+ pulses, warm, well-perfused, no edema. Laboratory Results - last 24 hr 09/01/18 09/01/18 05:30 11:45 WBC 4.6 5.8 RBC 2.64 L 3.01 L Hgb 8.5 L 9.7 L Hct 23.7 L 27.1 L MCV 89.5 89.9 MCH 32.1 32.2 MCHC 35.9 35.8 RDW 14.5 14.4 Plt Count 235 292 D MPV 7.0 L 6.9 L Active Medications Generic Name Dose Route Start Last Admin Trade Name Freq PRN Reason Stop Dose Admin Acetaminophen 650 mg 08/28/18 18:14 09/01/18 16:37 Tylenol - PO 650 mg Q4H PRN Administration PAIN LEVEL 1-5 Al Hydroxide/Mg Hydroxide 30 ml 08/29/18 14:30 09/01/18 17:46 Mylanta Oral Suspension - PO 30 ml Q6HPO SONYA Administration Losartan Potassium 50 mg 08/29/18 10:00 09/01/18 09:22 Cozaar - PO 50 mg DAILY SONYA Administration Ondansetron HCl 4 mg 08/29/18 14:34 08/29/18 14:52 Zofran Injection IVPUSH 4 mg Q6H PRN Administration NAUSEA Pantoprazole Sodium 40 mg 09/01/18 22:00 Protonix - PO BID SONYA ASSESSMENT/PLAN: This is a 52 year old female with a history of PUD, GERD, HTN, haemorrhoids, IBS admitted with melena, UGIB, Deulefoy on EGD, found to be anemic; transfused 1 U PRBC. #Acute upper GI bleed from Diluefoy lesion s/p hemostasis -s/p UPRBC -H/H stable -protonix -GI following #HTN: controlled -cont losartan Disposition: d/c yordy if stable Visit type - Emergency Visit Emergency Visit: Yes ED Registration Date: 08/28/18 Care time: The patient presented to the Emergency Department on the above date and was hospitalized for further evaluation of their emergent condition. - New Patient This patient is new to me today: Yes Date on this admission: 09/01/18 - Critical Care Critical Care patient: No
[2018-09-01] MEDS: PANTOPRAZOLE 40 MG TABLET (FP) PO SCH (21:37)
[2018-09-02] MEDS: MAG HYDROX/AL HYDROX/SIMETH 30 ML UNIT-DOSE CUP PO SCH ×3 (00:20→11:16)
[2018-09-02 08:13] LABS: ANION GAP 5 MMOL/L (8-16); BLOOD UREA NITROGEN 12 mg/dL (7-18); CALCIUM 8.1 mg/dL (8.5-10.1); CHLORIDE 106 mmol/L (98-107); CO2 30 mmol/L (21-32); CREATININE 0.7 mg/dL (0.55-1.3); GLUCOSE,RANDOM 86 mg/dL (74-106); MAGNESIUM 2.3 mg/dL (1.8-2.4); PHOSPHOROUS 3.4 mg/dL (2.5-4.9); POTASSIUM 3.9 mmol/L (3.5-5.1); SODIUM 142 mmol/L (136-145)
[2018-09-02 09:37] LABS: BASO % 0.3 % (0-2.0); EOS % 4.3 % (0-4.5); HEMATOCRIT 26.4 % (32.4-45.2); HEMOGLOBIN 9.3 GM/dL (10.7-15.3); LYMPH % 28.9 % (8-40); MCH 31.8 pg (25.7-33.7); MCHC 35.4 g/dl (32.0-36.0); MEAN CELL VOLUME 89.7 fl (80-96); MEAN PLT VOLUME 7.3 fl (7.5-11.1); MONO % 8.1 % (3.8-10.2); NEUT % 58.4 % (42.8-82.8); PLATELET COUNT 262 K/MM3 (134-434); RBC 2.94 M/mm3 (3.60-5.2); RDW 14.4 % (11.6-15.6); RETICULOCYTES 5.59 % (0.5-1.5); WHITE BLOOD COUNT 5.3 K/mm3 (4.0-10.0)
--- NOTE | 2018-09-02 11:11 | DS ---
Physical Exam: SUBJECTIVE: Patient seen and examined, no further dark or bloody stools, abdominal symptoms resolved. tolerating diet well. OBJECTIVE: Vital Signs Period Temp Pulse Resp BP Sys/Nayak Pulse Ox Last 24 Hr 98 F-98.4 F 69-80 17-20 106-121/66-69 98 PHYSICAL EXAM GENERAL: The patient is awake, alert, and fully oriented, in no acute distress, pallor. HEAD: Normal with no signs of trauma. EYES: PERRL, extraocular movements intact, sclera anicteric, conjunctiva clear. ENT: Ears normal, nares patent, oropharynx clear without exudates, moist mucous membranes. NECK: Trachea midline, full range of motion, supple. LUNGS: Breath sounds equal, clear to auscultation bilaterally, no wheezes, no crackles, no accessory muscle use. HEART: Regular rate and rhythm, S1, S2 ABDOMEN: Soft, nontender, nondistended, normoactive bowel sounds, no guarding, no rebound, EXTREMITIES: 2+ pulses, warm, well-perfused, no edema. PSYCH: Normal mood, normal affect. SKIN: Warm, dry, normal turgor, no rashes or lesions noted. LABS Laboratory Results - last 24 hr 09/01/18 09/02/18 09/02/18 11:45 06:10 06:10 WBC 5.8 5.3 RBC 3.01 L 2.94 L Hgb 9.7 L 9.3 L Hct 27.1 L 26.4 L MCV 89.9 89.7 MCH 32.2 31.8 MCHC 35.8 35.4 RDW 14.4 14.4 Plt Count 292 D 262 MPV 6.9 L 7.3 L Absolute Neuts (auto) 3.1 Neutrophils % 58.4 Lymphocytes % 28.9 D Monocytes % 8.1 Eosinophils % 4.3 Basophils % 0.3 Nucleated RBC % 0 Retic Count 5.59 H Sodium 142 Potassium 3.9 Chloride 106 Carbon Dioxide 30 Anion Gap 5 L BUN 12 Creatinine 0.7 Creat Clearance w eGFR 87.20 POC Glucometer Random Glucose 86 Calcium 8.1 L Phosphorus 3.4 Magnesium 2.3 Ferritin 197.0 09/02/18 06:33 WBC RBC Hgb Hct MCV MCH MCHC RDW Plt Count MPV Absolute Neuts (auto) Neutrophils % Lymphocytes % Monocytes % Eosinophils % Basophils % Nucleated RBC % Retic Count Sodium Potassium Chloride Carbon Dioxide Anion Gap BUN Creatinine Creat Clearance w eGFR POC Glucometer 87 Random Glucose Calcium Phosphorus Magnesium Ferritin CT A/P: COMPARISON IMAGIN04/13/2008 FINDINGS: LUNG BASES:Negative. LIVER: Hepatic steatosis. GALLBLADDER: Status post cholecystectomy. BILIARY DUCTS: Negative. PANCREAS: Negative. SPLEEN: Negative. ADRENALS: Negative. KIDNEYS: Scattered small cysts noted. Nonobstructing nephrolithiasis within the lower pole of the left kidney measuring 6 mm. Nonobstructing nephrolithiasis within the lower pole of the right kidney measuring 5 mm. AORTA: Negative. LYMPH NODES: Negative. BOWEL: Normal looking appendix. No evidence to suggest bowel obstruction. The colon is decompressed. No colonic wall thickening is identified. No evidence to suggest acute diverticulitis. No diverticulosis. No free air/fluid is present. The stomach contains fluid. PELVIS: The bladder is physiologically distended. The uterus was not identified, either previously removed or atrophic. No pelvic sidewall adenopathy seen. OTHER: No aggressive bone lesions seen. IMPRESSION: Nonobstructing nephrolithiasis. Hepatic steatosis. Additional comments noted above. COMPARISON IMAGIN04/13/2008 FINDINGS: LUNG BASES:Negative. LIVER: Hepatic steatosis. GALLBLADDER: Status post cholecystectomy. BILIARY DUCTS: Negative. PANCREAS: Negative. SPLEEN: Negative. ADRENALS: Negative. KIDNEYS: Scattered small cysts noted. Nonobstructing nephrolithiasis within the lower pole of the left kidney measuring 6 mm. Nonobstructing nephrolithiasis within the lower pole of the right kidney measuring 5 mm. AORTA: Negative. LYMPH NODES: Negative. BOWEL: Normal looking appendix. No evidence to suggest bowel obstruction. The colon is decompressed. No colonic wall thickening is identified. No evidence to suggest acute diverticulitis. No diverticulosis. No free air/fluid is present. The stomach contains fluid. PELVIS: The bladder is physiologically distended. The uterus was not identified, either previously removed or atrophic. No pelvic sidewall adenopathy seen. OTHER: No aggressive bone lesions seen. IMPRESSION: Nonobstructing nephrolithiasis. Hepatic steatosis. Additional comments noted above. HOSPITAL COURSE: Date of Admission:08/28/18 Date of Discharge: 09/02/18 Minutes to complete discharge: 40 Discharge Summary Reason For Visit: OCCULT BLOOD IN STOOLS,DECREASED HEMOGLOBIN Current Active Problems Abdominal pain (Acute) Adenomatous colon polyp (Acute) Dieulafoy lesion of stomach (Acute) Diverticula of colon (Acute) Fatty (change of) liver, not elsewhere classified (Acute) [id number] (Acute) Gastric hemorrhage due to Dieulafoy lesion of stomach (Acute) Gastrointestinal hemorrhage (Acute) Guaiac positive stools (Acute) Hemoglobin decreased (Acute) History of peptic ulcer disease (Acute) Hypertension (Acute) Hospital Course: 52 yof with PMHx of HTN, diverticulosis, IBS admitted with 3 days of dark stools and epigastric burning and cramping. She reported taking regular NSAIDs for her migrainous headaches. She was placed on protonix drip and GI was consulted with Dr. Tejada. She had EGD showing bleeding Dieulafoy lesion that was treated with cautery/epinephrine and clips. She also had acute blood loss anemia, received 1 unit of PRBC and intravenous iron. Her diet was advanced which she is tolerating well. He hemoglobin is stable with no further dark or bloody stools. She will be discharged on protonix with outpatient follow up with Dr. Tejada. Condition: Stable - Instructions Diet, Activity, Other Instructions: You were admitted with dark bloody stools and had an endoscopy showing a bleeding "Dieulafoy lesion". You received 1 unit blood and intravenous iron. If recurrent bleeding, you may need surgical intervention. MEDICATIONS: New medication: Protonix 40 mg daily till further instructed by Dr. Tejada. Continue home medications as before DIET: Soft diet as tolerated FOLLOW UP: Dr. Tejada in [address] Nair in 1 week Blood work CBC (Complete blood count) in 1 week with your doctor. PLEASE NOTE THAT YOU RECEIVED CLIPS IN YOUR STOMACH TO STOP BLEEDING, SO DO NOT HAVE MRI TESTING WITHOUT DISCUSSION WITH YOUR DOCTOR. Your iron studies results are pending, please have your primary care doctor follow up on results and start on oral iron accordingly. DO NOT MOTRIN, IBUPROFEN OR ANY OTHER NSAIDS OR BLOOD THINNERS WITHOUT DISCUSSION WITH YOUR DOCTOR. If you notice any new dark or bloody stools, dizziness, weakness or any new concerns, please call 911 or come to ED immediately. Referrals: Gabby Tejada MD [Staff Physician] - 1 Week Narciso Zhao MD [Staff Physician] - Vel Nair MD [Staff Physician] - Disposition: HOME - Home Medications Comprehensive Discharge Medication List: Ambulatory Orders Losartan Potassium 50 mg PO DAILY 08/28/18 Acetaminophen [Tylenol] 1,000 mg IVPB ASDIR 08/29/18 Pantoprazole Sodium [Protonix] 40 mg PO DAILY #30 tablet. 09/02/18 This patient is new to me today: No Emergency Visit: Yes ED Registration Date: 08/28/18 Care time: The patient presented to the Emergency Department on the above date and was hospitalized for further evaluation of their emergent condition. Critical Care patient: No - Discharge Referral Referred to [facility] Med P.C.: No
[2018-09-02] MEDS: LOSARTAN POTASSIUM 50 MG TABLET (FP) PO SCH (11:15)
[2018-09-02] MEDS: PANTOPRAZOLE 40 MG TABLET (FP) PO SCH (11:16)
[2018-09-02 11:40] VITALS: BP 130/72; PULSE 70; TEMP 98.2
[2018-09-03 04:14] LABS: SERUM IRON SATURATION 38 % (15-55); TOTAL IRON BINDING CAPACITY 274 ug/dL (250-450); UIBC 169 ug/dL (131-425)
== END 2018-09-02 12:30 | disposition home or self-care (01) | DRG 378 ==
LOC: JER 09:29 → JERBED 15:29 → J6S 19:49 → J8W 08-29 16:57
PROVIDERS: ADMIT Hospitalist; ATTEND Hospitalist
PROC: 3E0G8GC Introduction of Other Therapeutic Substance into Upper GI, Via Natural or Artificial Opening Endoscopic (ICD-10-PCS; 2018-08-29)
PROC: 0W3P8ZZ Control Bleeding in Gastrointestinal Tract, Via Natural or Artificial Opening Endoscopic (ICD-10-PCS; principal; 2018-08-29 14:30)
PROC: 30233N1 Transfusion of Nonautologous Red Blood Cells into Peripheral Vein, Percutaneous Approach (ICD-10-PCS; 2018-08-30)
DX: K31.82 Dieulafoy lesion (hemorrhagic) of stomach and duodenum (principal); D62 Acute posthemorrhagic anemia; K92.1 Melena; K64.8 Other hemorrhoids; I10 Essential (primary) hypertension; K58.9 Irritable bowel syndrome, unspecified; K21.9 Gastro-esophageal reflux disease without esophagitis; E87.6 Hypokalemia; K76.0 Fatty (change of) liver, not elsewhere classified; K57.90 Diverticulosis of intestine, part unspecified, without perforation or abscess without bleeding; K44.9 Diaphragmatic hernia without obstruction or gangrene; G43.909 Migraine, unspecified, not intractable, without status migrainosus; E66.9 Obesity, unspecified; Z68.32 Body mass index [BMI] 32.0-32.9, adult
CPT/HCPCS: 36415; 36430; 74177-TC; 80048; 80053; 81003; 82150; 82272; 82728; 82962; 83540; 83550; 83690; 83735; 84100; 84132; 85025; 85027; 85044; 85610; 86850; 86900; 86901; 86922; 93005; 93010; 99284-25; J1756; P9038; P9058

== ENCOUNTER 2019-06-01 14:59 | Emergency (ER) | payer BC ==
[2019-06-01 15:13] VITALS: TEMP 98.2; BMI 34.2
--- NOTE | 2019-06-01 15:29 | PDOC ---
History of Present Illness - General Chief Complaint: Pain Stated Complaint: ABD PAIN Time Seen by Provider: 06/01/19 15:25 History Source: Patient - History of Present Illness Timing/Duration: reports: constant Quality: reports: sharpness Abdominal Pain Onset Location: reports: suprapubic, other (supra) Pain Radiation: reports: groin Past History - Past Medical History Allergies/Adverse Reactions: Allergies Allergy/AdvReac Type Severity Reaction Status Date / Time No Known Allergies Allergy Verified 06/01/19 15:10 Home Medications: Ambulatory Orders Losartan Potassium 50 mg PO DAILY 08/28/18 Acetaminophen [Tylenol] 1,000 mg IVPB ASDIR 08/29/18 Pantoprazole Sodium [Protonix] 40 mg PO DAILY #30 tablet. 09/02/18 Acetaminophen [Tylenol -] 100 mg PO Q6H #30 tablet 06/01/19 Ondansetron HCl [Zofran] 4 mg PO Q8H #12 tablet 06/01/19 Anemia: No Asthma: No Cancer: No Cardiac Disorders: Yes (MVP (MILD)) CVA: No COPD: No CHF: No Dementia: No Diabetes: No GI Disorders: Yes (IBS,COLON POLYPS,ULCER) Disorders: Yes (HPV) HTN: Yes Hypercholesterolemia: No Liver Disease: Yes (NAFLD) Seizures: No Thyroid Disease: No - Surgical History Abdominal Surgery: Yes (hysterectomy) Appendectomy: No Cardiac Surgery: No Cholecystectomy: Yes Lung Surgery: No Neurologic Surgery: No Orthopedic Surgery: No - Immunization History Immunization Up to Date: Yes - Psycho Social/Smoking Cessation Hx Smoking History: Never smoked Have you smoked in the past 12 months: No Information on smoking cessation initiated: No Hx Alcohol Use: No Drug/Substance Use Hx: No Substance Use Type: None Abd/GI Specific PMHX - Complaint Specific PMHX Colitis: Yes Diverticulitis: Yes Irritable Bowel Synd (IBS): Yes Review of Systems - Review of Systems Constitutional: No: Chills, Fever ABD/GI: Yes: Nausea, Vomiting. No: Blood Streaked Bowels, Constipated, Diarrhea , Rectal Bleeding, Tarry Stools : Yes: Frequency. No: Flank Pain, Hematuria *Physical Exam - Vital Signs Last Vital Signs Temp Pulse Resp BP Pulse Ox 98.2 F 116 H 18 169/90 97 06/01/19 15:10 06/01/19 15:10 06/01/19 15:10 06/01/19 15:10 06/01/19 15:10 - Physical Exam General Appearance: Yes: Appropriately Dressed. No: Apparent Distress HEENT: positive: Normal Voice Neck: positive: Supple Respiratory/Chest: negative: Respiratory Distress Gastrointestinal/Abdominal: positive: Normal Bowel Sounds, Tender (mild ttp diffusely to lower abd), Soft. negative: Distended, Guarding, Rebound Musculoskeletal: negative: CVA Tenderness Integumentary: positive: Dry, Warm Neurologic: positive: Fully Oriented, Alert, Normal Mood/Affect ED Treatment Course - LABORATORY CBC & Chemistry Diagram: 06/01/19 15:30 06/01/19 15:30 Medical Decision Making - Medical Decision Making 06/01/19 15:26 53 yo female, h/o fibroids, endometriosis, s/p hysterectomy, post menopausal, renal stones, ?IBS, gastric ulcer, s/p resection of colonic polyps, s/p catrachita, p /w lower abd pain x 1 month, on and off, worse "whenever I go to the bathroom to pee or move my bowels" per pt. Also reports urinary frequency that started around same time. No diarrhea, constipation, melena, BRBPR, hematuria, nausea, vomiting, fever or chills. States she follows up with Dr. Tejada of GI and saw MD last week and given Maalox per pt. States urine was not collected then. Came to ED today because pt had 1 e/o n/v this am see exam Lower abd pain w/ urinary freq x 1 month Etiology unclear at this time, does report h/o renal stone though renal colic unlikely given duration of sxs Seen by GI and given maalox per pt Unimpressive abd/pelvic exam -labs -ua -reassess 06/01/19 17:06 Patient called her GI, Dr. Tejada while in the ED and asked MD to speak with me. Case discussed with MD who request CT r/o diverticulitis at this time 06/01/19 18:40 CT negative for diverticulitis or appy but does show renal stones including a 0.4 x 0.3 cm distal R ureteral stone that is 1 cm from UVJ. No hydro. Labs wnl, UA w/ blood, no e/o infxn. and UA unremarkable. Patient states pain currently 5 /10. Rpt HR 81. Will give IV fluids Toradol and Flomax and dc with follow-up 06/01/19 19:00 Signed out to SHILPI Woodson pending discharge Discharge - Discharge Information Problems reviewed: Yes Clinical Impression/Diagnosis: Right groin pain, Renal stone, Urinary frequency Condition: Good Disposition: HOME - Additional Discharge Information Prescriptions: Acetaminophen [Tylenol -] 100 mg PO Q6H #30 tablet Ondansetron HCl [Zofran] 4 mg PO Q8H #12 tablet - Follow up/Referral Referrals: Kirk Mejia MD [Staff Physician] - - Patient Discharge Instructions Patient Printed Discharge Instructions: Kidney Stones -- Adult Additional Instructions: CAT scan shows a 0.4 cm stone in the distal right ureter that may be causing your symptoms Take medications as directed and drink plenty of fluids Please follow-up with Dr. Mejia of urology - Post Discharge Activity Work/Back to School Note: Back to Work
[2019-06-01 16:00] LABS: BASO % 0.5 % (0-2.0); EOS % 0.1 % (0-4.5); HEMATOCRIT 39.2 % (32.4-45.2); HEMOGLOBIN 13.6 GM/dL (10.7-15.3); LYMPH % 24.8 % (8-40); MCH 30.3 pg (25.7-33.7); MCHC 34.8 g/dl (32.0-36.0); MEAN CELL VOLUME 87.2 fl (80-96); MEAN PLT VOLUME 7.7 fl (7.5-11.1); MONO % 4.7 % (3.8-10.2); NEUT % 69.9 % (42.8-82.8); PLATELET COUNT 328 K/MM3 (134-434); RDW 13.4 % (11.6-15.6); WHITE BLOOD COUNT 8.3 K/mm3 (4.0-10.0)
[2019-06-01 16:18] LABS: EPI CELLS 2.5 /HPF (0-5/HPF); HYALINE CASTS 11 /lpf (0-8); PH,URINE 5.5 (5.0-8.0); URINE APPEARANCE CLEAR; URINE BACTERIA 3.8 /hpf (NEGATIVE); URINE BILIRUBIN NEGATIVE (NEGATIVE); URINE COLOR YELLOW; URINE GLUCOSE (UA) NEGATIVE (NEGATIVE); URINE KETONE NEGATIVE (NEGATIVE); URINE LEUK ESTERASE NEGATIVE (NEGATIVE); URINE NITRITE NEGATIVE (NEGATIVE); URINE PROTEIN 1+ (NEGATIVE); URINE RBC 18 /hpf (0-4); URINE UROBILINOGEN 0.2 mg/dL (0.2-1.0); URINE WBC 4 /hpf (0-5)
[2019-06-01 16:25] LABS: ALBUMIN 4.5 g/dl (3.4-5.0); BILIRUBIN,TOTAL 0.5 mg/dL (0.2-1); BLOOD UREA NITROGEN 18.1 mg/dL (7-18); CALCIUM 9.2 mg/dL (8.5-10.1); CREATININE 0.7 mg/dL (0.55-1.3); TOT PROT 7.9 g/dl (6.4-8.2)
[2019-06-01] MEDS ORDERED: SODIUM CHLORIDE 1,000 ML IV STA (18:38)
[2019-06-01] MEDS ORDERED: TAMSULOSIN HCL 0.4 MG CAP PO ONE (18:38)
[2019-06-01] MEDS ORDERED: KETOROLAC TROMETHAMINE 30 MG/1 ML VIAL IVPUSH ONE (18:38)
[2019-06-01] MEDS ORDERED: KETOROLAC TROMETHAMINE 30 MG/1 ML VIAL ONE (18:43)
[2019-06-01] MEDS ORDERED: TAMSULOSIN HCL 0.4 MG CAP ONE (18:43)
[2019-06-01 18:57] VITALS: PULSE 86
--- NOTE | 2019-06-01 19:29 | PDOC ---
*Physical Exam - Vital Signs Last Vital Signs Temp Pulse Resp BP Pulse Ox 98.2 F 86 18 169/90 97 06/01/19 15:10 06/01/19 18:57 06/01/19 15:10 06/01/19 15:10 06/01/19 15:10 ED Treatment Course - LABORATORY CBC & Chemistry Diagram: 06/01/19 15:30 06/01/19 15:30 - ADDITIONAL ORDERS Additional order review: Laboratory Results 06/01/19 06/01/19 15:41 15:30 Sodium 140 Potassium 4.0 Chloride 106 Carbon Dioxide 26 Anion Gap 9 BUN 18.1 H Creatinine 0.7 Est GFR (CKD-EPI)AfAm 113.05 Est GFR (CKD-EPI)NonAf 97.54 Random Glucose 92 Calcium 9.2 Total Bilirubin 0.5 AST 31 ALT 45 Alkaline Phosphatase 95 Total Protein 7.9 Albumin 4.5 Urine Color Yellow Urine Appearance Clear Urine pH 5.5 D Ur Specific Gaines 1.032 Urine Protein 1+ H Urine Glucose (UA) Negative Urine Ketones Negative Urine Blood 1+ H Urine Nitrite Negative Urine Bilirubin Negative Urine Urobilinogen 0.2 Ur Leukocyte Esterase Negative Urine WBC (Auto) 4 Urine RBC (Auto) 18 Urine Casts (Auto) 11 U Epithel Cells (Auto) 2.5 Urine Bacteria (Auto) 3.8 06/01/19 15:30 RBC 4.50 MCV 87.2 MCHC 34.8 RDW 13.4 MPV 7.7 Neutrophils % 69.9 D Lymphocytes % 24.8 D Monocytes % 4.7 Eosinophils % 0.1 D Basophils % 0.5 - Medications Given in the ED: ED Medications Discontinued Medications Generic Name Dose Route Start Last Admin Trade Name Freq PRN Reason Stop Dose Admin Ketorolac Tromethamine 30 mg 06/01/19 18:38 06/01/19 18:53 Toradol Injection - IVPUSH 06/01/19 18:39 30 mg ONCE ONE Administration Tamsulosin HCl 0.4 mg 06/01/19 18:38 06/01/19 18:53 Flomax - PO 06/01/19 18:39 0.4 mg ONCE ONE Administration Medical Decision Making - Medical Decision Making 06/01/19 19:29 pain improved. will d/ chome Discharge - Discharge Information Problems reviewed: Yes Clinical Impression/Diagnosis: Right groin pain, Renal stone, Urinary frequency Condition: Good Disposition: HOME - Additional Discharge Information Prescriptions: Acetaminophen [Tylenol -] 100 mg PO Q6H #30 tablet Ondansetron HCl [Zofran] 4 mg PO Q8H #12 tablet Tamsulosin HCl [Flomax] 0.4 mg PO DAILY #7 cap.er.24h - Follow up/Referral Referrals: Kirk Mejia MD [Staff Physician] - - Patient Discharge Instructions Patient Printed Discharge Instructions: Kidney Stones -- Adult Additional Instructions: CAT scan shows a 0.4 cm stone in the distal right ureter that may be causing your symptoms Take medications as directed and drink plenty of fluids Please follow-up with Dr. Mejia of urology - Post Discharge Activity Work/Back to School Note: Back to Work
[2019-06-01 19:37] VITALS: BP 127/69
== END 2019-06-01 19:37 | disposition home or self-care (01) ==
LOC: JER 14:59
PROC: 3E0333Z Introduction of Anti-inflammatory into Peripheral Vein, Percutaneous Approach (ICD-10-PCS; principal; 2019-06-01)
DX: R10.31 Right lower quadrant pain (principal); N20.0 Calculus of kidney; R35.0 Frequency of micturition; N80.9 Endometriosis, unspecified; D21.9 Benign neoplasm of connective and other soft tissue, unspecified; K25.9 Gastric ulcer, unspecified as acute or chronic, without hemorrhage or perforation
CPT/HCPCS: 36415; 74177-TC; 80053; 81003; 85025; 87086; 99283-25; J7030; Q9967

== ENCOUNTER 2019-12-30 06:57 | Day surgery (SDC) | payer BC ==
[2019-12-24 14:15] VITALS: BMI 33.8
[2019-12-30 08:42] VITALS: TEMP 98
[2019-12-30 09:10] VITALS: BP 129/65; PULSE 59
--- NOTE | 2019-12-31 10:18 | PATH ---
Surgical Pathology Report Patient Name: YOLETTE TARANGO [facility]. Rec. #: [id number] /Age/Gender: 1965 (Age: 54) / F Account: [id number] Location: [facility]-ENDOSCOPY Taken: 12/30/2019 Received: 12/30/2019 Reported: 12/31/2019 Physicians: Gabby Tejada M.D. Specimen(s) Received A: DESCENDING COLON POLYP B: RIGHT COLON POLYP Clinical History Adenoma surveillance Postoperative diagnosis: Colonic polyps Final Diagnosis A. DESCENDING COLON POLYP, BIOPSY: POLYPOID COLONIC MUCOSA WITH REACTIVE LYMPHOID AGGREGATES IN THE LAMINA PROPRIA. NEGATIVE FOR ADENOMATOUS CHANGE. B. RIGHT COLON POLYP, BIOPSY: COLONIC MUCOSA WITH FOCAL SURFACE HYPERPLASTIC CHANGE. Electronically Signed Geremias Fox M.D. Gross Description A. Received in formalin, labeled "biopsy descending colon polyp" is a claros, irregular portion of soft tissue measuring 0.4 cm. in greatest dimension. The specimen is submitted in toto in one cassette. B. Received in formalin, labeled "biopsy right colon polyp" is a claros, irregular portion of soft tissue measuring 0.2 cm. in greatest dimension. The specimen is submitted in toto in one cassette. DL/12/30/2019 saudi/12/30/2019
== END 2019-12-30 09:22 | disposition home or self-care (01) ==
LOC: JASU-ENDO 06:57
PROVIDERS: ATTEND Internal Medicine Gastroenterology
PROC: 0DBM8ZX Excision of Descending Colon, Via Natural or Artificial Opening Endoscopic, Diagnostic (ICD-10-PCS; 2019-12-30)
PROC: 0DBK8ZX Excision of Ascending Colon, Via Natural or Artificial Opening Endoscopic, Diagnostic (ICD-10-PCS; principal; 2019-12-30 08:00)
DX: Z12.11 Encounter for screening for malignant neoplasm of colon (principal); Z86.010 Personal history of colon polyps; D12.2 Benign neoplasm of ascending colon; D12.4 Benign neoplasm of descending colon; K57.30 Diverticulosis of large intestine without perforation or abscess without bleeding; K64.8 Other hemorrhoids
CPT/HCPCS: 88305-TC

== ENCOUNTER 2020-12-18 16:06 | Emergency (ER) | payer BC ==
[2020-12-18 16:11] VITALS: BP 152/90; TEMP 97.9; BMI 33.6
[2020-12-18 17:05] VITALS: PULSE 89
== END 2020-12-18 17:32 | disposition home or self-care (01) ==
LOC: JER 16:06
DX: S10.15XA Superficial foreign body of throat, initial encounter (principal)
CPT/HCPCS: 99283-25

== ENCOUNTER 2025-02-01 06:04 | Day surgery (SDC) | payer BC ==
[2025-01-29 11:24] VITALS: BMI 33.0
[2025-02-01 08:49] VITALS: TEMP 98.2
[2025-02-01 09:39] VITALS: BP 139/85; PULSE 67; RESP 17
== END 2025-02-01 09:55 | disposition home or self-care (01) ==
LOC: JASU-ENDO 06:04
PROVIDERS: ATTEND Internal Medicine Gastroenterology
PROC: 0DBP8ZX Excision of Rectum, Via Natural or Artificial Opening Endoscopic, Diagnostic (ICD-10-PCS; 2025-02-01)
PROC: 0DB98ZX Excision of Duodenum, Via Natural or Artificial Opening Endoscopic, Diagnostic (ICD-10-PCS; 2025-02-01)
PROC: 0DB68ZX Excision of Stomach, Via Natural or Artificial Opening Endoscopic, Diagnostic (ICD-10-PCS; 2025-02-01)
PROC: 0DBM8ZX Excision of Descending Colon, Via Natural or Artificial Opening Endoscopic, Diagnostic (ICD-10-PCS; principal; 2025-02-01 08:00)
DX: Z12.11 Encounter for screening for malignant neoplasm of colon (principal); D12.4 Benign neoplasm of descending colon; D12.8 Benign neoplasm of rectum; K64.8 Other hemorrhoids; K57.30 Diverticulosis of large intestine without perforation or abscess without bleeding; K20.80 Other esophagitis without bleeding; K29.50 Unspecified chronic gastritis without bleeding; B96.81 Helicobacter pylori [H. pylori] as the cause of diseases classified elsewhere; Z86.0100 Personal history of colon polyps, unspecified
CPT/HCPCS: 88305-TC; 88342-TC